=== PATIENT | male | born 1935 | race Caucasian/White ===

== ENCOUNTER 2017-12-31 23:58 | Emergency (ER) | payer MEDICARE, BC ==
[2018-01-01 01:43] LABS: #Basophils 0.1 thou/uL (0.0-0.2); #Eosinphils 0.1 thou/uL (0.0-0.7); #Lymphocytes 1.7 thou/uL (1.20-3.40); #Monocytes 0.6 thou/uL (0.11-0.59); %Eosinophils 1.7 % (0.0-10.0); %Lymphocytes 19.6 % (21.0-51.0); %Monocytes 6.9 % (0.0-10.0); %Neutrophils 70.7 % (42.0-75.0); Hemoglobin 14.1 g/dL (14.0-18.0); Mean Corpuscular HGB CONC 34.8 g/dL (32.0-36.0); Mean Corpuscular Hemoglobin 33.5 pg (27.0-31.0); Mean Corpuscular Volume 96.2 fl (80.0-94.0); Platelet Count 195 thou/uL (130-400); RBC Distribution Width 11.5 % (11.5-14.5); Red Blood Cell (RBC) Count 4.22 mill/uL (4.70-6.10); White Blood Cell (WBC) Count 8.4 thou/uL (4.8-10.8)
[2018-01-01 02:05] LABS: ALT (SGPT) 16 U/L (8-55); AST (SGOT) 19 U/L (5-34); Albumin 3.9 g/dL (3.4-4.8); Alkaline Phosphatase 98 U/L (40-150); Anion Gap 13 mmol/L (10-20); BUN (Urea Nitrogen) 22 mg/dL (8.4-25.7); Bilirubin, Total 0.7 mg/dL (0.2-1.2); CK (CPK) 80 U/L (30-200); Calc. Creatinine Clearance 0 mL/min (70-130); Calcium 9.5 mg/dL (7.8-10.44); Carbon Dioxide 25 mmol/L (23-31); Chloride 105 mmol/L (98-107); Estimated GFR-MDRD 65; Globulin 3.1 g/dL (2.4-3.5); Glucose 135 mg/dL (83-110); Potassium 4.2 mmol/L (3.5-5.1); Sodium 139 mmol/L (136-145)
[2018-01-01 02:08] LABS: CKMB 2.3 ng/mL (0-6.6); Troponin I Less than 0.010 ng/mL (< 0.028)
--- NOTE | 2018-01-01 07:39 | RAD ---
SINGLE VIEW OF THE CHEST: COMPARISON: 04/28/16. HISTORY: Chest pain. FINDINGS: A single view of the chest shows an enlarged but stable cardiomediastinal silhouette. The patient is status post sternotomy. There is elevation of the left hemidiaphragm. Atelectasis is seen in the l eft lung base. There is no evidence of consolidation, mass, or pleural effusion. IMPRESSION: 1. No evidence of acute cardiopulmonary disease. 2. Cardiomegaly. POS: [facility]
== END 2018-01-01 02:39 | disposition home or self-care (01) ==
LOC: ERS 23:58
DX: I10 Essential (primary) hypertension (principal); I25.10 Atherosclerotic heart disease of native coronary artery without angina pectoris; Z87.891 Personal history of nicotine dependence; Z79.899 Other long term (current) drug therapy; Z79.02 Long term (current) use of antithrombotics/antiplatelets
CPT/HCPCS: 36415; 71045; 80053; 82550; 82553; 83880; 84484; 85025; 93005

== ENCOUNTER 2018-09-08 22:34 | Observation (INO) | payer MEDICARE, BC ==
[2018-09-08 23:26] LABS: #Basophils 0.1 thou/uL (0.0-0.2); #Eosinphils 0.3 thou/uL (0.0-0.7); #Lymphocytes 1.8 thou/uL (1.20-3.40); #Monocytes 0.6 thou/uL (0.11-0.59); #Neutrophils 5.6 thou/uL (1.40-6.50); %Basophils 0.7 % (0.0-1.0); %Lymphocytes 21.3 % (21.0-51.0); %Monocytes 7.2 % (0.0-10.0); %Neutrophils 67.8 % (42.0-75.0); Hemoglobin 14.4 g/dL (14.0-18.0); Mean Corpuscular HGB CONC 33.3 g/dL (32.0-36.0); Mean Corpuscular Hemoglobin 31.9 pg (27.0-31.0); Mean Corpuscular Volume 95.8 fL (78.0-98.0); Mean Platelet Volume 7.1 fL (7.4-10.4); Platelet Count 228 thou/uL (130-400); RBC Distribution Width 11.8 % (11.5-14.5); Red Blood Cell (RBC) Count 4.51 mill/uL (4.70-6.10); White Blood Cell (WBC) Count 8.3 thou/uL (4.8-10.8)
[2018-09-08 23:51] LABS: ALT (SGPT) 16 U/L (8-55); AST (SGOT) 18 U/L (5-34); Albumin 4.1 g/dL (3.4-4.8); Alkaline Phosphatase 102 U/L (40-150); Anion Gap 10 mmol/L (10-20); BUN (Urea Nitrogen) 25 mg/dL (8.4-25.7); Calc. Creatinine Clearance 0 mL/min (70-130); Calcium 9.7 mg/dL (7.8-10.44); Carbon Dioxide 28 mmol/L (23-31); Chloride 103 mmol/L (98-107); Estimated GFR-MDRD 41; Globulin 3.6 g/dL (2.4-3.5); Glucose 157 mg/dL (83-110); Potassium 4.2 mmol/L (3.5-5.1); Protein, Total 7.7 g/dL (5.8-8.1); Sodium 137 mmol/L (136-145)
[2018-09-08 23:52] LABS: CKMB 2.2 ng/mL (0-6.6); Troponin I Less than 0.010 ng/mL (< 0.028)
[2018-09-09 02:52] LABS: Troponin I Less than 0.010 ng/mL (< 0.028)
[2018-09-09 04:26] VITALS: BMI 29.5
[2018-09-09 05:54] LABS: Troponin I Less than 0.010 ng/mL (< 0.028)
[2018-09-09] MEDS ORDERED: Temazepam 15 MG CAP PO PRN (07:48)
[2018-09-09] MEDS ORDERED: ALPRAZolam 0.25 MG TAB PO SCH (08:00)
[2018-09-09] MEDS ORDERED: Nitroglycerin 0.4 MG TAB (25 Tab Bottle) SL SCH (08:00)
[2018-09-09] MEDS ORDERED: Non-Formulary Item 1 EACH (Esomeprazole Magnesium [Nexium] 40 MG) PO SCH (08:00)
--- NOTE | 2018-09-09 08:40 | RAD ---
CHEST 1 VIEW: HISTORY: Chest pain. Elevated blood pressure. COMPARISON: Radiograph 01/01/2018. FINDINGS: Chronic elevation of the hemidiaphragm. Compressive atelectasis of both lung bases. There are subtl e increased linear-type interstitial opacities. No acute osseous abnormality. Multiple midline sternotomy wires. IMPRESSION: Similar to examination of the chest. No evidence for overt pneumonia. Chronic interstitial markings versus similar edema. POS: [facility]
--- NOTE | 2018-09-09 08:43 | HP ---
ADMITTING PHYSICIAN: Talon Delatorre M.D. HISTORY OF PRESENT ILLNESS: The patient is an 83-year-old male status post coronary bypass graft man y years ago with a known history of atherosclerotic coronary disease. He brought himself to the [facility] room, stated he had elevated blood pressure reading at home of a systolic of 202. He recently had his valsartan changed out to probably losartan. He states that since he has had that blood press ure medicine change, his blood pressure is now slightly elevated at times. H, he reports no chest pa in, no shortness of breath. He does have some left flank pain at times, which he describes more like gas-like pain. He has not noted any nausea, vomiting, diarrhea, no fever. Upon questioning at this time, he states he is feeling fairly normal. He reported his chest x-ray showed fluid on his lungs. This is noted in the ER notes, but otherwise no other medical complaints. No cough. At this time, he is resting comfortably. As noted, he has a history of coronary bypass surgery approximately 10-1 5 years ago. He did have one stent placed in 2016 as well. PAST MEDICAL HISTORY: Positive for hypertension, coronary artery disease, insomnia, osteoarthritis. SURGICAL HISTORY: As noted, positive for the coronary bypass graft as well as stent. SOCIAL AND PERSONAL HISTORY: He is . He does not smoke. He still works as a barnard. He sommers s not drink alcohol at this time. CURRENT MEDICATIONS: Amlodipine 2.5 mg daily, carvedilol 6.25 mg b.i.d., Plavix 75 mg daily, Indocin 25 mg daily as needed for arthritis pain, atenolol 10 mg daily, Xalatan eye drops, aspirin 325 daily , temazepam 50 mg at bedtime, Nexium 20 mg daily. He still lists valsartan 160 mg daily, as well as Benicar 5 mg daily. REVIEW OF SYSTEMS: GASTROINTESTINAL: Positive for some gas pain to the left upper quadrant. GENITOURINARY: Negative. CARDIOVASCULAR: Negative. PULMONARY: Otherwise negative. PHYSICAL EXAMINATION: VITAL SIGNS: Temperature 97.6, pulse 61, respirations 16, O2 sat 98%, blood pressure currently 140/8 3. GENERAL: He is alert, active, in no acute distress. HEENT: Otherwise, unremarkable. NECK: Supple, full range of motion, no masses, no bruits. LUNGS: Clear. HEART: Reveals a regular rate and rhythm without murmurs, gallops or rubs. ABDOMEN: Soft, nontender, bowel sounds are present and active. There is no hepatosplenomegaly noted . EXTREMITIES: No clubbing, edema or cyanosis. LABORATORY: Sodium is 137, potassium 4.2, chloride 103, CO2 28, BUN 25, creatinine 1.6. Troponins x 3 are normal. His BNP is 56.8. White blood count 8.3, hemoglobin 14.4, hematocrit 43.2 with normal differential. Chest x-ray by ER report shows pleural effusions. Otherwise, no other findings were noted. EKG reveals sinus rhythm without acute changes. IMPRESSION: his is an 83-year-old male who had elevated hypertensive episode at home. Appears to be fairly asymptomatic with previous history of atherosclerotic coronary artery disease. PLAN: The patient's blood pressure is currently normal at this time. We will go ahead and order a s tress test as well as Cardiology consult. He is to maintain his home medications for the moment.
[2018-09-09] MEDS ORDERED: Non-Formulary Item 1 EACH (Amlodipine Besylate [Norvasc] 2.5 MG) PO SCH (09:00)
[2018-09-09] MEDS ORDERED: Timolol 0.25% Ophth Soln 5 ml Bottle EA EYE SCH (09:00)
[2018-09-09] MEDS ORDERED: Amlodipine 5 MG TAB PO SCH ×2 (09:00→14:30)
[2018-09-09] MEDS ORDERED: Carvedilol 6.25 MG TAB PO SCH (09:00)
[2018-09-09] MEDS ORDERED: Aspirin 325 MG TAB PO SCH ×2 (09:00)
[2018-09-09] MEDS ORDERED: Bupropion 100 MG SR TAB PO SCH (09:00)
[2018-09-09] MEDS ORDERED: Clopidogrel Bisulfate 75 MG TAB PO SCH (09:00)
[2018-09-09] MEDS ORDERED: SULINDAC 150 MG PO SCH ×2 (09:00)
[2018-09-09] MEDS ORDERED: Latanoprost 0.005% Ophth Soln 2.5 ml Bottle EA EYE SCH (09:00)
[2018-09-09] MEDS ORDERED: ADENOSINE 60 MG/20 ML VIAL ONE (13:08)
[2018-09-09] MEDS ORDERED: Olmesartan 5 MG TAB PO SCH (13:48)
[2018-09-09] MEDS ORDERED: cloNIDine 0.1 MG TAB PO PRN (13:50)
--- NOTE | 2018-09-09 14:15 | PRG ---
DATE OF SERVICE: 09/09/2018 SUBJECTIVE: Mr. Santos is an 83-year-old gentleman who went to the emergency room yesterday with blood pressure systolic over 200. He denied any chest pain or pressure with that. The patient was transferred here for further evaluation. He feels fine. He has not had any chest pain or pressure. OBJECTIVE: VITAL SIGNS: Blood pressure earlier was 138/76, it was 190/91 today, but I do not think he got his blood pressure medicines due to stress testing. LUNGS: Clear. CARDIAC: Normal S1, normal S2. ABDOMEN: Soft, nontender. EXTREMITIES: No edema. Stress testing was done showed no ischemia. ASSESSMENT: 1. Hypertension, labile. 2. Coronary artery disease with no evidence of any ischemia on stress testing by report. 3. Apparently, he had been taken off of his diuretic due to renal insufficiency. PLAN: 1. Increase amlodipine to 10 mg a day. 2. Continue Benicar 40 mg a day. 3. Clonidine if needed. 4. Continue carvedilol. 5. Continue other medicines unchanged. Clonidine 0.1 mg every hour if the systolic blood pressures over 180 up to 4 doses per day. MTDD
--- NOTE | 2018-09-09 14:29 | NM ---
RADIONUCLIDE STRESS REST MYOCARDIAL PERFUSION SCAN WITH CT ATTENUATION CORRECTION AND SPECT IMAGING LEFT VENTRICULAR WALL MOTION EVALUATION AND EJECTION FRACTION: HISTORY: FINDINGS: Adenosine protocol. Homogeneous uptake of radiotracer throughout the left ventricular myocardium. N o focal perfusion defect or reversibility. QGS analysis of gated SPECT images shows no focal wall mo tion abnormalities. Ejection fraction calculated at 65%. IMPRESSION: Normal myocardial perfusion scan. Normal left ventricular ejection fraction. POS: [facility]
[2018-09-09 15:41] VITALS: BP 156/85; TEMP 97.5
[2018-09-09] MEDS ORDERED: Pravastatin Sodium 20 MG TAB PO SCH (21:00)
[2018-09-09] MEDS ORDERED: Simvastatin 5 MG TAB PO SCH (21:00)
[2018-09-10] MEDS ORDERED: Amlodipine 10 MG TAB PO SCH (09:00)
--- NOTE | 2018-09-14 11:36 | EKG ---
Test Reason : Blood Pressure : / mmHG Vent. Rate : 065 BPM Atrial Rate : 065 BPM P-R Int : 126 ms QRS Dur : 080 ms QT Int : 430 ms P-R-T Axes : 010 011 031 degrees QTc Int : 447 ms Normal sinus rhythm Normal ECG Confirmed by SG ROY DO ([id number]), state editor TUCKER BLOOM ([id number]) on 09/14/2018 11:35:38 AM Referred By: MANOJ ROY Confirmed By:SG ROY DO
== END 2018-09-09 16:07 | disposition home or self-care (01) ==
LOC: ERS 22:34 → 2SW 09-09 03:30
PROVIDERS: ADMIT Family Medicine; ATTEND Family Medicine
DX: I11.0 Hypertensive heart disease with heart failure (principal); I50.9 Heart failure, unspecified; I25.10 Atherosclerotic heart disease of native coronary artery without angina pectoris; M19.90 Unspecified osteoarthritis, unspecified site; Z79.02 Long term (current) use of antithrombotics/antiplatelets; Z79.899 Other long term (current) drug therapy; Z79.82 Long term (current) use of aspirin
CPT/HCPCS: 71045; 78452; 80053; 82553; 83880; 84484 ×3; 85025; 93005; 93017; 94760; 99285; A9500; G0378 ×2; 36415; J0153

== ENCOUNTER 2019-08-19 13:50 | Outpatient (CLI) | payer MEDICARE, BC ==
[2019-08-19 14:54] LABS: #Basophils 0.1 thou/uL (0.0-0.2); #Eosinphils 0.2 thou/uL (0.0-0.7); #Lymphocytes 1.8 thou/uL (1.20-3.40); #Monocytes 0.8 thou/uL (0.11-0.59); #Neutrophils 7.3 thou/uL (1.40-6.50); %Basophils 0.7 % (0.0-1.0); %Eosinophils 2.1 % (0.0-10.0); %Lymphocytes 17.5 % (21.0-51.0); %Monocytes 8.2 % (0.0-10.0); %Neutrophils 71.5 % (42.0-75.0); Hemoglobin 13.7 g/dL (14.0-18.0); Mean Corpuscular HGB CONC 34.2 g/dL (32.0-36.0); Mean Corpuscular Hemoglobin 32.7 pg (27.0-31.0); Mean Corpuscular Volume 95.6 fL (78.0-98.0); Mean Platelet Volume 7.6 fL (7.4-10.4); Platelet Count 205 thou/uL (130-400); RBC Distribution Width 11.2 % (11.5-14.5); Red Blood Cell (RBC) Count 4.19 mill/uL (4.70-6.10); White Blood Cell (WBC) Count 10.2 thou/uL (4.8-10.8)
[2019-08-19 15:15] LABS: ALT (SGPT) 13 U/L (8-55); AST (SGOT) 14 U/L (5-34); Albumin 3.9 g/dL (3.4-4.8); Alkaline Phosphatase 109 U/L (40-110); Anion Gap 15 mmol/L (10-20); BUN (Urea Nitrogen) 26 mg/dL (8.4-25.7); Bilirubin, Total 0.9 mg/dL (0.2-1.2); Calc. Creatinine Clearance 0 mL/min (70-130); Calcium 9.2 mg/dL (7.8-10.44); Carbon Dioxide 24 mmol/L (23-31); Chloride 102 mmol/L (98-107); Estimated GFR-MDRD 31; Globulin 3.2 g/dL (2.4-3.5); Glucose 168 mg/dL (83-110); Potassium 4.2 mmol/L (3.5-5.1); Protein, Total 7.1 g/dL (5.8-8.1); Sodium 137 mmol/L (136-145)
== END 2019-08-19 13:51 | disposition home or self-care (01) ==
LOC: LABBT 13:50
PROVIDERS: ATTEND Internal Medicine Cardiovascular Disease
DX: Z01.812 Encounter for preprocedural laboratory examination (principal); I20.9 Angina pectoris, unspecified
CPT/HCPCS: 80053; 85025

== ENCOUNTER 2019-08-25 05:37 | Day surgery (SDC) | payer MEDICARE, BC ==
[2019-08-19 14:09] VITALS: BMI 29.1
[2019-08-25] MEDS ORDERED: Lidocaine 1% (PF) 30 ML VIAL ONE (06:36)
[2019-08-25 07:17] LABS: Anion Gap 13 mmol/L (10-20); BUN (Urea Nitrogen) 19 mg/dL (8.4-25.7); Calc. Creatinine Clearance 51 mL/min (70-130); Calcium 9.5 mg/dL (7.8-10.44); Carbon Dioxide 25 mmol/L (23-31); Chloride 106 mmol/L (98-107); Estimated GFR-MDRD 47; Glucose 116 mg/dL (83-110); Potassium 4.1 mmol/L (3.5-5.1); Sodium 140 mmol/L (136-145)
[2019-08-25] MEDS ORDERED: Fentanyl 100 MCG/2 ML VIAL ONE (07:51)
[2019-08-25] MEDS ORDERED: Atropine Sulfate 1 mg/10 ml Syringe ONE (08:18)
[2019-08-25] MEDS ORDERED: Hydrocortisone Sod Succ/PF 100 mg/2 ml Vial ONE (08:39)
[2019-08-25] MEDS ORDERED: Iopamidol 370 76% 100 ML VIAL ONE (14:02)
--- NOTE | 2019-08-25 14:38 | DIS ---
DATE OF ADMISSION: 08/25/2019 DATE OF DISCHARGE: 08/25/2019 Mr. Dang underwent cardiac catheterization today. He should be treated medically. His ejection fraction is 55%. He does have diastolic heart failure, also bradycardic. PLAN: 1. The carvedilol is reduced to 3.125 mg twice a day. 2. Benicar was stopped for now. 3. Torsemide 10 mg a day. 4. Potassium 20 mEq a day. 5. Amlodipine 10 mg a day. 6. Aspirin and Plavix will be continued. His creatinine went from 2.04 down to 1.4, going off the olmesartan for couple of days. Long-term prognosis guarded. He was bradycardic here. The carvedilol dose was reduced. He has diastolic heart failure, not systolic heart failure. The patient has patent graft to the LAD and diagonal. The patent stent in the right with distal disease, patent circumflex with ostial lesion calcified at the origin, not amenable to percutaneous therapy. Prognosis, long-term, guarded. Job ID: [id number]
== END 2019-08-25 13:48 | disposition home or self-care (01) ==
LOC: CCL 05:37 → EDSTATUS 10:35 → CCL 13:48
PROVIDERS: ATTEND Internal Medicine Cardiovascular Disease
PROC: 4A023N7 Measurement of Cardiac Sampling and Pressure, Left Heart, Percutaneous Approach (ICD-10-PCS; principal; 2019-08-25)
PROC: B2111ZZ Fluoroscopy of Multiple Coronary Arteries using Low Osmolar Contrast (ICD-10-PCS; 2019-08-25)
DX: I25.718 Atherosclerosis of autologous vein coronary artery bypass graft(s) with other forms of angina pectoris (principal); I25.82 Chronic total occlusion of coronary artery; I25.84 Coronary atherosclerosis due to calcified coronary lesion; I10 Essential (primary) hypertension; E78.00 Pure hypercholesterolemia, unspecified; I49.3 Ventricular premature depolarization; Z95.1 Presence of aortocoronary bypass graft
CPT/HCPCS: 76942; 80048; 93459; C1769; J0461; J1644; J1720; J2001; J3010; Q9967

== ENCOUNTER 2019-08-31 09:08 | Emergency (ER) | payer MEDICARE, BC ==
[2019-08-31 10:08] LABS: #Eosinphils 0.2 thou/uL (0.0-0.7); #Lymphocytes 1.7 thou/uL (1.20-3.40); #Monocytes 0.8 thou/uL (0.11-0.59); #Neutrophils 7.1 thou/uL (1.40-6.50); %Basophils 0.4 % (0.0-1.0); %Eosinophils 2.2 % (0.0-10.0); %Lymphocytes 17.3 % (21.0-51.0); %Monocytes 8.4 % (0.0-10.0); %Neutrophils 71.7 % (42.0-75.0); Hemoglobin 14.1 g/dL (14.0-18.0); Mean Corpuscular HGB CONC 34.2 g/dL (32.0-36.0); Mean Corpuscular Volume 93.6 fL (78.0-98.0); Mean Platelet Volume 7.3 fL (7.4-10.4); Platelet Count 222 thou/uL (130-400); RBC Distribution Width 11.3 % (11.5-14.5); Red Blood Cell (RBC) Count 4.39 mill/uL (4.70-6.10); White Blood Cell (WBC) Count 9.9 thou/uL (4.8-10.8)
--- NOTE | 2019-08-31 10:30 | RAD ---
PORTABLE CHEST ONE VIEW: 08/31/2019 9:38 a.m. HISTORY: Shortness of breath. COMPARISON: 02/12/2019 FINDINGS: There is continued elevation of the left hemidiaphragm. There is mild infiltrate versus atelectatic c hange at the left lung base. Changes of median sternotomy are again seen. The right lung is clear. POS: [facility]
[2019-08-31 10:34] LABS: ALT (SGPT) 13 U/L (8-55); AST (SGOT) 15 U/L (5-34); Alkaline Phosphatase 117 U/L (40-110); Anion Gap 13 mmol/L (10-20); BUN (Urea Nitrogen) 19 mg/dL (8.4-25.7); Calc. Creatinine Clearance 0 mL/min (70-130); Calcium 9.1 mg/dL (7.8-10.44); Carbon Dioxide 25 mmol/L (23-31); Chloride 103 mmol/L (98-107); Estimated GFR-MDRD 49; Glucose 116 mg/dL (83-110); Potassium 4.1 mmol/L (3.5-5.1); Sodium 137 mmol/L (136-145)
== END 2019-08-31 11:27 | disposition home or self-care (01) ==
LOC: ERS 09:08
DX: R06.00 Dyspnea, unspecified (principal); M54.5 Low back pain; I10 Essential (primary) hypertension; Z87.891 Personal history of nicotine dependence; Z79.899 Other long term (current) drug therapy
CPT/HCPCS: 36415; 71045; 80053; 83690; 83880; 84484; 85025

== ENCOUNTER 2020-12-19 13:27 | Inpatient (IN) | payer MEDICARE, BC ==
--- NOTE | 2020-12-19 14:17 | RAD ---
RADIOGRAPH CHEST 1 VIEW: DATE: 12/19/2020 TIME: 2:09 PM HISTORY: 88-year-old male with altered mental status. Concern for aspiration. COMPARISON: 08/31/2019 FINDINGS: Elevated left hemidiaphragm. Mild nodular interstitial densities at the lateral aspect of left mid an d lower lung zones. Hypoinflated lungs. Sternotomy wires. Similar mild nodular interstitial densities at right lateral lower lung zone. No new consolidation or pneumothorax. No interval change overall. IMPRESSION: 1) chronically elevated left hemidiaphragm. 2) chronic bilateral nodular interstitial pulmonary densities. 3) no acute findings
[2020-12-19 14:23] LABS: Bacteria/HPF None Seen HPF (None Seen); Bilirubin Negative (Negative); Blood, Urine 1+ (Negative); Clarity Clear (Clear); Glucose, Urine (Dipstick) Normal (Negative); Ketone, Urine Negative (Negative); Leukocyte Negative Leu/uL (Negative); Nitrite Negative (Negative); Protein, Urine (Dipstick) 10 mg/dL (Neg-Trace); RBC/HPF 21-50 HPF (0-3); Specific Gravity, Urine 1.017 (1.002-1.036); Squamous Epithelial None Seen HPF (0-3); Urobilinogen Normal mg/dL (Less than 2)
[2020-12-19 14:31] LABS: Medtox Reader # READER 4
[2020-12-19 14:32] LABS: Amphetamine Not Detected (NotDetected); Barbiturates Screen Not Detected (NotDetected); Benzodiazepine Screen Detected (NotDetected); Cocaine Metabolite Screen Not Detected (NotDetected); Medtox Control Line Valid? VALID (VALID); Methadone Not Detected (NotDetected); Methamphetamine Not Detected (NotDetected); Opiate Screen Not Detected (NotDetected); Oxycodone Screen Not Detected (NotDetected); Phencyclidine (PCP) Not Detected (NotDetected); THC/Cannabinoid Screen Not Detected (NotDetected); Tricyclic Screen Not Detected (NotDetected)
[2020-12-19 14:54] LABS: #Basophils 0.1 thou/uL (0.0-0.2); #Eosinphils 0.2 thou/uL (0.0-0.7); #Monocytes 0.8 thou/uL (0.11-0.59); #Neutrophils 6.3 thou/uL (1.40-6.50); %Eosinophils 1.8 % (0.0-10.0); %Lymphocytes 21.3 % (21.0-51.0); %Monocytes 8.8 % (0.0-10.0); %Neutrophils 67.1 % (42.0-75.0); Hemoglobin 14.4 g/dL (14.0-18.0); Mean Corpuscular HGB CONC 33.6 g/dL (32.0-36.0); Mean Corpuscular Hemoglobin 31.4 pg (27.0-31.0); Mean Corpuscular Volume 93.6 fL (78.0-98.0); Mean Platelet Volume 7.2 fL (7.4-10.4); Platelet Count 245 thou/uL (130-400); RBC Distribution Width 11.9 % (11.5-14.5); Red Blood Cell (RBC) Count 4.57 mill/uL (4.70-6.10); White Blood Cell (WBC) Count 9.4 thou/uL (4.8-10.8)
[2020-12-19 15:13] LABS: ALT (SGPT) 19 U/L (8-55); AST (SGOT) 19 U/L (5-34); Acetaminophen Less than 6.0 mcg/mL (10.0-30.0); Alcohol Less than 10 mg/dL (Less than 10); Alkaline Phosphatase 119 U/L (40-110); Anion Gap 16 mmol/L (10-20); BUN (Urea Nitrogen) 21 mg/dL (8.4-25.7); Bilirubin, Total 1.2 mg/dL (0.2-1.2); Calc. Creatinine Clearance 0 mL/min (70-130); Calcium 9.3 mg/dL (7.8-10.44); Carbon Dioxide 23 mmol/L (23-31); Chloride 103 mmol/L (98-107); Globulin 3.6 g/dL (2.4-3.5); Glucose 140 mg/dL (83-110); Potassium 4.1 mmol/L (3.5-5.1); Protein, Total 7.6 g/dL (5.8-8.1); Salicylate Less than 8.0 mg/dL (15.0-30.0); Sodium 138 mmol/L (136-145)
--- NOTE | 2020-12-19 15:19 | CT ---
CT BRAIN NONCONTRAST: DATE: 12/19/2020 HISTORY: 85-year-old male with altered mental status FINDINGS: There is no evidence of acute intra-axial or extra-axial hemorrhage. There is no midline shift or any other mass effect. There is no extra-axial fluid collection. There is no evidence of obstructive hydrocephalus. Calvarium is intact. There is diffuse brain parenchymal volume loss. There are low att enuation areas in the white matter. These are nonspecific, but in a patient of this age, they are probably chronic ischemic white matter changes due to microvascular atherosclerosis. IMPRESSION: 1) No acute intracranial findings. 2) involutional changes and chronic ischemic white matter changes.
[2020-12-19] MEDS ORDERED: Ziprasidone 20 MG VIAL ONE ×2 (17:01)
[2020-12-19] MEDS ORDERED: Sterile Water 10 ML ONE (17:02)
[2020-12-19] MEDS ORDERED: Senokot S 8.6-50 MG TAB PO PRN (18:28)
[2020-12-19] MEDS ORDERED: Acetaminophen 325 MG TAB PO PRN (18:28)
[2020-12-19] MEDS: Famotidine 20 MG TAB PO SCH (21:15)
[2020-12-19] MEDS ORDERED: Sodium Chloride 0.9% 1,000 ML IV SCH (21:45)
--- NOTE | 2020-12-19 22:33 | HP ---
PRIMARY CARE PHYSICIAN: Dr. Talon Delatorre. CHIEF COMPLAINT: Altered mental status. HISTORY OF PRESENT ILLNESS: Mr. Santos is an 85-year-old man who was brought to the emergency room today via EMS after what his says is 2 to 3 weeks of intermittent agitation. He has some aggressive behaviors without any previous history of any dementia. called the EMS today because he was getting significantly worse over the last several days. He has been unable to sleep, has been aggressive with her and very confused. The patient was unable to give any history, especially over the last several days. Mr. Santos has a past medical history of coronary artery disease, hypertension, and high cholesterol. It appears the last hospitalization at this hospital was in 2017. He had a cardiac stress test in August 2019. At that time, he had an LVEF of 55%. He had 100% occluded LAD with a patent WING to LAD and radiograph with two diagonal, 90% proximal circumflex. He has a patent stents in the RCA. He does have four grafts. Dr. Walker at that time recommended medical therapy. He did point out that he had some diastolic heart failure at that time as well. Workup in the emergency room was largely unremarkable. His creatinine was 1.43, which for him above baseline for the information we have over the last several years. Glucose is 140, alkaline phosphatase was 119, which is also at baseline for the patient. CBC with a white blood cell count of 9.4, hemoglobin of 14.4, hematocrit 42.8, and platelet count 245. Urine demonstrated a little bit of blood, white blood cells, no bacteria was seen. They did a urine drug screen, which was positive for benzodiazepine. He does take this p.r.n. at home, but no other findings. CT of the brain was also performed and was negative for any acute findings. The ER workup was unable to find a cause for the patient's altered mental status, then he was admitted for further management. REVIEW OF SYSTEMS: Unable to obtain due to mental status changes. PAST MEDICAL HISTORY: Please see HPI. SURGICAL HISTORY: He has had an appendectomy, coronary artery bypass graft four vessel in 2006, and cardiac stent placed in 2015. PSYCHIATRIC HISTORY: None. SOCIAL HISTORY: Denies any alcohol or drug use. He did smoke cigarettes at one time and he lives at home with his family. ALLERGIES: NONE. CURRENT MEDICATIONS: Per the ER system, these will need to be reconciled: 1. Amlodipine 10 mg p.o. once a day. 2. Coreg 6.25 p.o. b.i.d. 3. Flomax 0.4 mg p.o. once a day. 4. Restoril p.o. once a day at bedtime. 5. Colchicine 0.6 mg p.o. once a day. 6. Torsemide 10 mg p.o. once a day. 7. Aspirin 81 mg p.o. once a day. 8. Wellbutrin 100 mg p.o. once a day. 9. Timolol one drop both eyes b.i.d. 10. Plavix 75 mg p.o. once a day. 11. Xanax 0.25 mg p.r.n. 12. Potassium chloride 20 mEq once a day. PHYSICAL EXAMINATION: VITAL SIGNS: Blood pressure 135/84, MAP is 101, pulse is 72, respiratory rate is 16, and pO2 sats are 97% on room air. CONSTITUTIONAL: The patient is not agitated during the exam. He was speaking to one of the nurses in the room. With us, he was talking about some of his past history to her. He was stating he was uncomfortable and was looking for to getting out of that structure. HEENT: Head is atraumatic and normocephalic. Pupils are equally round and reactive to light. ENT, mouth exam is normal. Mucous membranes are moist. NECK: Normal range of motion. Trachea is midline. RESPIRATORY/CHEST: No respiratory distress. Bowel sounds are clear. CARDIOVASCULAR: Regular rate and rhythm. Heart sounds are normal. ABDOMEN: Nontender. Bowel sounds are heard. EXTREMITIES: Upper extremity, inspection is normal. There is no edema. Radial pulses are normal. Lower extremity, normal range of motion, no edema. He follows commands, but he is confused with current events. He has no facial asymmetry. SKIN: Warm and dry. Normal in color. IMAGING STUDIES: EKG in the emergency room shows normal sinus rhythm, beats per minute 82, ST-T waves with no changes. ASSESSMENT: 1. Altered mental status. Encephalopathy without any clear source. MRI of the brain, echocardiogram, carotid Dopplers have been ordered. Neurology consult has been added. PT, OT, Speech have been ordered. We are going to hold his Xanax and Restoril for now. May consider tapering. 2. Gentle hydration, normal saline at 75 mL per hour x1 bag. 3. History of coronary artery disease with a stent placement. We will continue his home medications. 4. History of diastolic dysfunction. We will continue the Lasix or torsemide. 5. PUD and DVT prevention started. 6. Hospital course dependent on clinical findings. Job ID: [id number]
--- NOTE | 2020-12-19 23:00 | ULT ---
EXAM: Carotid ultrasound HISTORY: Altered mental status COMPARISON: None TECHNIQUE: Multiplanar grayscale and color Doppler images were obtained in a carotid ultrasound. Spec tral analysis of the Doppler waveforms were performed. FINDINGS: A small amount of plaque is seen surrounding both carotid bifurcations. The Doppler waveforms are normal in the visualized vessels. Peak systolic velocity in the right internal carotid artery 68 cm/s. Peak systolic velocity in the right common carotid artery 72 cm/s. The right ICA/CCA ratio is 1.0. Peak systolic velocity in the left internal carotid artery 87 cm/s. Peak systolic velocity in the left common carotid artery 79 cm/s. The left ICA/CCA ratio is 1.1. Both vertebral arteries demonstrate antegrade flow without focal stenosis IMPRESSION: No evidence of hemodynamically significant stenosis.
[2020-12-20 01:40] LABS: SARS-CoV-2 PCR by NAA Not Detected (NotDetected)
[2020-12-20 04:51] LABS: #Basophils 0.1 thou/uL (0.0-0.2); #Eosinphils 0.2 thou/uL (0.0-0.7); #Lymphocytes 1.7 thou/uL (1.20-3.40); #Monocytes 0.8 thou/uL (0.11-0.59); #Neutrophils 5.8 thou/uL (1.40-6.50); %Eosinophils 2.5 % (0.0-10.0); %Lymphocytes 19.3 % (21.0-51.0); %Monocytes 9.7 % (0.0-10.0); %Neutrophils 67.5 % (42.0-75.0); Hemoglobin 14.1 g/dL (14.0-18.0); Mean Corpuscular HGB CONC 34.2 g/dL (32.0-36.0); Mean Corpuscular Hemoglobin 32.6 pg (27.0-31.0); Mean Corpuscular Volume 95.5 fL (78.0-98.0); Mean Platelet Volume 7.6 fL (7.4-10.4); Platelet Count 235 thou/uL (130-400); Red Blood Cell (RBC) Count 4.33 mill/uL (4.70-6.10); White Blood Cell (WBC) Count 8.5 thou/uL (4.8-10.8)
[2020-12-20 05:09] LABS: Phosphorus 2.4 mg/dL (2.3-4.7)
[2020-12-20 05:10] LABS: ALT (SGPT) 19 U/L (8-55); AST (SGOT) 21 U/L (5-34); Albumin 3.8 g/dL (3.4-4.8); Alkaline Phosphatase 112 U/L (40-110); Anion Gap 14 mmol/L (10-20); BUN (Urea Nitrogen) 18 mg/dL (8.4-25.7); Calc. Creatinine Clearance 48 mL/min (70-130); Calcium 9.2 mg/dL (7.8-10.44); Carbon Dioxide 25 mmol/L (23-31); Chloride 105 mmol/L (98-107); Globulin 3.5 g/dL (2.4-3.5); Glucose 203 mg/dL (83-110); Potassium 3.6 mmol/L (3.5-5.1); Protein, Total 7.3 g/dL (5.8-8.1); Sodium 140 mmol/L (136-145)
[2020-12-20] MEDS ORDERED: Lorazepam 2 MG/ML VIAL SLOW IVP SCH (11:00)
[2020-12-20] MEDS: Carvedilol 6.25 MG TAB PO SCH ×2 (11:42→20:55)
[2020-12-20] MEDS: Bupropion 100 MG SR TAB PO SCH (11:42)
[2020-12-20] MEDS: Potassium Chloride 10 MEQ TAB PO SCH ×2 (11:42→18:25)
[2020-12-20] MEDS: Clopidogrel Bisulfate 75 MG TAB PO SCH (11:42)
[2020-12-20] MEDS: Torsemide 20 MG TAB PO SCH (11:43)
[2020-12-20] MEDS: Aspirin 81 mg Enteric Coated Tablet PO SCH (11:43)
[2020-12-20] MEDS: Famotidine 20 MG TAB PO SCH (11:43)
[2020-12-20] MEDS: Amlodipine 10 MG TAB PO SCH (11:43)
[2020-12-20] MEDS: Timolol 0.25% Ophth Soln 5 ml Bottle EA EYE SCH (11:44)
[2020-12-20] MEDS: Enoxaparin Sodium 40 MG/0.4 ML SYRINGE SC SCH (11:45)
--- NOTE | 2020-12-20 12:44 | CON ---
NEUROLOGY CONSULTATION DATE OF CONSULTATION: 12/20/2020 REASON FOR CONSULTATION: Altered mental status. HISTORY OF PRESENT ILLNESS: Mr. Santos is an 85-year-old male with medical history significant for coronary artery disease, presented to the emergency room with altered mental status. The patient has no prior history of dementia, agitation, confusion, or episodes of memory lapses. He does have depression which is controlled with Wellbutrin. Per , he has an intermittent agitation for the last 2 to 3 weeks, but since yesterday, he became extremely agitated and combative and it was difficult to control his anger, so the called EMS and decided to bring him to the emergency room for further evaluation. The patient is extremely agitated at the time of the rounds, so history is obtained from the . Per , they have been for 62 years and he has no change in mental status. Overall these years, this is the first time he has an episode of extreme anger and combativeness with confusion. The denies any focal weakness, focal paresthesias, nausea, vomiting, chest pain, abdominal pain, recent illness or recent exposure with COVID. He did not sleep for the last 2 days. REVIEW OF SYSTEMS: Unable to obtain secondary to patient's mental status. Per , all systems reviewed and were negative except the pertinent positives and negatives mentioned in the HPI. PAST MEDICAL HISTORY: Hypertension, hypercholesterolemia, coronary artery disease. PAST SURGICAL HISTORY: He has appendectomy, coronary artery bypass graft four-vessel in 2006, cardiac stent placed in 2016. PAST PSYCHIATRIC HISTORY: Depression controlled with Wellbutrin. SOCIAL HISTORY: Per , he has no history of alcohol or drug abuse. He did smoke cigarettes previously and lives at home with his family. ALLERGIES: NONE. CURRENT MEDICATIONS: 1. Amlodipine 10 mg once daily. 2. Coreg 6.25 mg twice daily. 3. Flomax 0.4 mg p.o. once daily. 4. Restoril. 5. Colchicine 0.6 mg once a day. 6. Torsemide 10 mg p.o. once daily. 7. Aspirin 81 mg once daily. 8. Wellbutrin 100 mg p.o. once daily. 9. Tylenol 1 drop both eyes b.i.d. 10. Plavix 75 mg once daily. 11. Xanax 0.25 mg p.r.n. 12. Potassium chloride 20 mEq once daily. PHYSICAL EXAMINATION: VITAL SIGNS: Blood pressure 137/90, pulse 80, respiratory rate 18. GENERAL: The patient is extremely agitated and trying to get out of the bed. He is yelling and extremely uncooperative. CVS: Regular rate and rhythm. CHEST: Clear. ABDOMEN: Soft. NECK: Supple. NEUROLOGICAL: Mental status; the patient is extremely agitated and does not want to be examined. He is oriented to person and place, but not to time and year, trying to get out of the bed and starts landing becoming uncomfortable. Motor, muscle tone and bulk are normal. Moving all 4 extremities equally and symmetrically. Sensory; withdraws to nailbed pressure bilaterally. Cranial nerves; pupils 4 mm, round and reactive to light. Face symmetric. Tongue midline. Moves neck in both direction. Hearing seems to be intact. Cerebellar did not cooperate with the testing. Gait deferred due to patient's safety reason. DATA REVIEWED: I reviewed the CT scan which was negative for acute intracranial pathology. ASSESSMENT AND PLAN: Mr. Derrick Santos is an 85-year-old male who presented with altered mental status. He has no prior history of episodes like this before. Neurology consulted to rule out intracranial process. The patient is extremely agitated at this time. EEG to rule out cortical irritability and MRI of the brain to assess for acute intracranial process. 2D echocardiogram to evaluate for left ventricular ejection fraction . Carotid Dopplers did not reveal hemodynamically significant stenosis. Continue telemetry to rule out arrhythmias. Give Ativan 2 mg IV for agitation . The patient has not been able to sleep for last 2 days. Continue aspirin and Plavix for secondary stroke prevention. Neuro checks every 4 hours. Continue home medications. Continue medical management per primary team. Monitor blood pressure and blood glucose. We will continue to follow. Thank you for the consult. Plan discussed in detail with the patient's at bedside and also with the primary attending, Dr. Miguel Deng. Job ID: [id number] [facility]
--- NOTE | 2020-12-20 13:32 | PDOC.EEG ---
Neurology EEG Report - Report Report: This EEG was performed using 24 channel [employer] video EEG machine with 24 disc electrodes. This was an extended 2 hours 6 minutes of inpatient video EEG recording. Digital analysis of the EEG was done for spike and seizure detection which revealed no abnormalities. Background: The posterior background rhythm is not observed. Hyperventilation: Not performed. Photic Stimulation: No significant response. Sleep: No stage change is observed. EEG Diagnosis: Generalized irregular theta delta activity seen during the recording. Absence of posterior background rhythm. Clinical Interpretation: This EEG is consistent with moderate generalized nonspecific cerebral dysfunct ion. No electrographic seizures captured during the recording
--- NOTE | 2020-12-20 17:33 | PDOC.HOSPP ---
- Subjective Encounter Date: 12/20/20 Encounter Time: 17:31 Subjective: Mr. Santos was seen today in follow-up of delirium, vs. dementia. He has been agitated most of the day. He was given Ativan and is now much more calm. - Objective Vital Signs & Weight: Vital Signs (12 hours) Temp Pulse Pulse Pulse Resp BP BP 12/20/20 16:00 98.4 F 74 20 12/20/20 14:50 72 73 131/86 139/76 12/20/20 11:00 98.4 F 88 21 H 12/20/20 07:20 99.3 F 102 H 14 BP Pulse Ox 12/20/20 16:00 128/70 99 12/20/20 14:50 12/20/20 11:00 140/87 99 12/20/20 07:20 128/94 H 98 Weight Admit Weight 194 lb 8 oz Weight 194 lb 8 oz I&O: 12/19/20 12/20/20 12/21/20 06:59 06:59 06:59 Intake Total 240 Balance 240 Result Diagrams: 12/20/20 04:05 12/20/20 04:05 Hospitalist ROS - Medication Medications: Active Medications Generic Name Dose Route Start Last Admin Trade Name Freq PRN Reason Stop Dose Admin Amlodipine Besylate 10 mg 12/20/20 09:00 12/20/20 11:43 Amlodipine 10 Mg Tab PO 10 mg DAILY CURTIS Administration Aspirin 81 mg 12/20/20 09:00 12/20/20 11:43 Aspirin 81 Mg Enteric Coated Tablet PO 81 mg DAILY CURTIS Administration Bupropion HCl 100 mg 12/20/20 09:00 12/20/20 11:42 Bupropion 100 Mg Sr Tab PO 100 mg DAILY CURTIS Administration Carvedilol 6.25 mg 12/20/20 09:00 12/20/20 11:42 Carvedilol 6.25 Mg Tab PO 6.25 mg BID CURTIS Administration Clopidogrel Bisulfate 75 mg 12/20/20 09:00 12/20/20 11:42 Clopidogrel Bisulfate 75 Mg Tab PO 75 mg DAILY CURTIS Administration Enoxaparin Sodium 40 mg 12/20/20 09:00 12/20/20 11:45 Enoxaparin Sodium 40 Mg/0.4 Ml Syringe SC 40 mg 09 CURTIS Administration Timolol Maleate 1 drop 12/20/20 09:00 12/20/20 11:44 Timolol 0.25% Ophth Soln 5 Ml Bottle EA EYE Not Given DAILY CURTIS Torsemide 10 mg 12/20/20 09:00 12/20/20 11:43 Torsemide 20 Mg Tab PO 10 mg DAILY CURTIS Administration Hospitalist Exam Vitals: Vital Signs (12 hours) Temp Pulse Pulse Pulse Resp BP BP 12/20/20 16:00 98.4 F 74 20 12/20/20 14:50 72 73 131/86 139/76 12/20/20 11:00 98.4 F 88 21 H 12/20/20 07:20 99.3 F 102 H 14 BP Pulse Ox 12/20/20 16:00 128/70 99 12/20/20 14:50 12/20/20 11:00 140/87 99 12/20/20 07:20 128/94 H 98 Weight Admit Weight 194 lb 8 oz Weight 194 lb 8 oz General Appearance: NAD, awake alert Eye: PERRL, anicteric sclera Heart: RRR, no murmur, no gallops, no rubs, normal peripheral pulses Respiratory: CTAB, no wheezes, no rales, no ronchi, normal chest expansion Gastrointestinal: soft, non-distended, normal bowel sounds Extremities: no cyanosis, no edema Hosp A/P (1) Acute delirium Code(s): R41.0 - DISORIENTATION, UNSPECIFIED Status: Acute (2) HTN (hypertension) Code(s): I10 - ESSENTIAL (PRIMARY) HYPERTENSION Status: Chronic (3) Coronary artery disease Code(s): I25.10 - ATHSCL HEART DISEASE OF [place] CORONARY ARTERY W/O ANG PCTRS Status: Chronic (4) BPH (benign prostatic hyperplasia) Code(s): N40.0 - BENIGN PROSTATIC HYPERPLASIA WITHOUT LOWER URINRY TRACT SYMP Status: Chronic - Plan * Delerium vs. Dementia- ? etiology- discussed his symptoms with the patient's who is at the bedside, as well as Dr. Brooks * Echo and carotid doppler results noted * Await MRI * Will check B12- and Folic acid, as well well RPR * HTN- blood pressure is controlled- continue Carvediolol and Amlodipine * CAD- stable * BPH- continue Flomax
[2020-12-20] MEDS: Latanoprost 0.005% Ophth Soln 2.5 ml Bottle EA EYE SCH (20:50)
[2020-12-20] MEDS: diphenhydrAMINE 50 MG/ML VIAL IVP PRN (20:50)
[2020-12-20] MEDS: Tamsulosin HCl 0.4 MG CAP PO SCH (20:55)
[2020-12-21] MEDS: diphenhydrAMINE 50 MG/ML VIAL IVP PRN ×2 (02:55→23:58)
[2020-12-21] MEDS: Famotidine 20 MG TAB PO SCH (07:32)
[2020-12-21] MEDS: Clopidogrel Bisulfate 75 MG TAB PO SCH (07:32)
[2020-12-21] MEDS: Torsemide 20 MG TAB PO SCH (07:32)
[2020-12-21] MEDS: Enoxaparin Sodium 40 MG/0.4 ML SYRINGE SC SCH (07:33)
[2020-12-21] MEDS: Amlodipine 10 MG TAB PO SCH (07:33)
[2020-12-21] MEDS: Potassium Chloride 10 MEQ TAB PO SCH (07:33)
[2020-12-21] MEDS: Aspirin 81 mg Enteric Coated Tablet PO SCH (07:33)
[2020-12-21] MEDS: Carvedilol 6.25 MG TAB PO SCH ×2 (07:34→21:43)
--- NOTE | 2020-12-21 08:18 | PDOC.HOSPP ---
- Subjective Encounter Date: 12/21/20 Encounter Time: 08:24 Subjective: Mr. Santos was seen this morning in follow altered mental status. He is not oriented to time, person, or place. He was belligerent. He stuttered, and his sentences did not make any sense. He was very somnolent as he would stop speaking and sleep suddenly; this happened a couple times in our conversation. - Objective Vital Signs & Weight: Vital Signs (12 hours) Temp Pulse Resp BP Pulse Ox 12/21/20 03:55 97.7 F 91 20 164/82 H 93 L Weight Admit Weight 88.224 kg Weight 86.183 kg I&O: 12/20/20 12/21/20 12/22/20 06:59 06:59 06:59 Intake Total 240 900 Balance 240 900 Result Diagrams: 12/20/20 04:05 12/20/20 04:05 Hospitalist ROS - Review of Systems Neurological: reports: confusion - Medication Medications: Active Medications Generic Name Dose Route Start Last Admin Trade Name Freq PRN Reason Stop Dose Admin Amlodipine Besylate 10 mg 12/20/20 09:00 12/21/20 07:33 Amlodipine 10 Mg Tab PO 10 mg DAILY CURTIS Administration Aspirin 81 mg 12/20/20 09:00 12/21/20 07:33 Aspirin 81 Mg Enteric Coated Tablet PO 81 mg DAILY CURTIS Administration Bupropion HCl 100 mg 12/20/20 09:00 12/20/20 11:42 Bupropion 100 Mg Sr Tab PO 100 mg DAILY CURTIS Administration Carvedilol 6.25 mg 12/20/20 09:00 12/21/20 07:34 Carvedilol 6.25 Mg Tab PO 6.25 mg BID CURTIS Administration Clopidogrel Bisulfate 75 mg 12/20/20 09:00 12/21/20 07:32 Clopidogrel Bisulfate 75 Mg Tab PO 75 mg DAILY CURTIS Administration Diphenhydramine HCl 12.5 mg 12/19/20 18:39 12/21/20 02:55 Diphenhydramine 50 Mg/Ml Vial IVP 12.5 mg Q4H PRN Administration Agitation Enoxaparin Sodium 40 mg 12/20/20 09:00 12/21/20 07:33 Enoxaparin Sodium 40 Mg/0.4 Ml Syringe SC 40 mg 0900 CURTIS Administration Famotidine 20 mg 12/21/20 09:00 12/21/20 07:32 Famotidine 20 Mg Tab PO 20 mg DAILY CURTIS Administration Latanoprost 1 drop 12/20/20 21:00 12/20/20 20:50 Latanoprost 0.005% Ophth Soln 2.5 Ml Bottle EA EYE 1 drop HS CURTIS Administration Potassium Chloride 10 meq 12/20/20 09:00 12/21/20 07:33 Potassium Chloride 10 Meq Tab PO 10 meq DAILY CURTIS Administration Tamsulosin HCl 0.4 mg 12/20/20 21:00 12/20/20 20:55 Tamsulosin Hcl 0.4 Mg Cap PO 0.4 mg HS CURTIS Administration Timolol Maleate 1 drop 12/20/20 09:00 12/20/20 11:44 Timolol 0.25% Ophth Soln 5 Ml Bottle EA EYE Not Given DAILY CURTIS Torsemide 10 mg 12/20/20 09:00 12/21/20 07:32 Torsemide 20 Mg Tab PO 10 mg DAILY CURTIS Administration Hospitalist Exam Vitals: Vital Signs (12 hours) Temp Pulse Resp BP Pulse Ox 12/21/20 03:55 97.7 F 91 20 164/82 H 93 L Weight Admit Weight 88.224 kg Weight 86.183 kg Psychiatric: not oriented, somnolent. negative: normal behavior Hosp A/P - Plan * Delerium vs. Dementia with aphasia-- etiology unknown; Wait for MRI. * Will check B12- and Folic acid, as well well RPR * HTN- blood pressure is elevated at 164/82- monitor and continue Carvediolol and Amlodipine * Hyperglycemia--start on insulin. * CAD- stable * BPH- continue Flomax
[2020-12-21 09:57] LABS: Syphilis Antibody Nonreactive (Nonreactive); Syphilis Antibody Index 0.14 S/CO (<1.00 Non-Reactive)
[2020-12-21] MEDS: Bupropion 100 MG SR TAB PO SCH (10:34)
--- NOTE | 2020-12-21 11:06 | PDOC.NEUPN ---
- Subjective Encounter Date: 12/21/20 Subjective: Pt previously presented with altered mental status and profuse agitation yesterday. Had multiple agitative episodes including forcefully telling all personnel to leave the room. He was not oriented to time, but seemed to be oriented to person and place. Overall, he seems very confused when answering simple questions, and would often stutter when answering questions. He was given Ativan to calm him. Today he was reported to be very somnolent, going in and out of alertness, and falling asleep during the middle of a conversation. Today he is also reported to not be oriented to person, place or time. He is also stuttering, presents with profuse confusion, and speaks sentences that make no sense. Subjective: non-verbal - Objective Vital Signs & Weight: Vital Signs (12 hours) Temp Pulse Resp BP Pulse Ox 12/21/20 07:30 98.0 F 88 18 159/91 H 95 12/21/20 03:55 97.7 F 91 20 164/82 H 93 L Weight Admit Weight 88.224 kg Weight 86.183 kg I&O: 12/20/20 12/21/20 12/22/20 06:59 06:59 06:59 Intake Total 240 900 Balance 240 900 Result Diagrams: 12/20/20 04:05 12/22/20 13:09 Additional Labs: A head CT was ordered and awaiting results. ROS - Review of Systems ROS unobtainable: due to mental status Constitutional: reports: other - Medication Medications: Active Medications Generic Name Dose Route Start Last Admin Trade Name Romarioq PRN Reason Stop Dose Admin Amlodipine Besylate 10 mg 12/20/20 09:00 12/21/20 07:33 Amlodipine 10 Mg Tab PO 10 mg DAILY CURTIS Administration Aspirin 81 mg 12/20/20 09:00 12/21/20 07:33 Aspirin 81 Mg Enteric Coated Tablet PO 81 mg DAILY CURTIS Administration Bupropion HCl 100 mg 12/20/20 09:00 12/21/20 10:34 Bupropion 100 Mg Sr Tab PO 100 mg DAILY CURTIS Administration Carvedilol 6.25 mg 12/20/20 09:00 12/21/20 07:34 Carvedilol 6.25 Mg Tab PO 6.25 mg BID CURTIS Administration Clopidogrel Bisulfate 75 mg 12/20/20 09:00 12/21/20 07:32 Clopidogrel Bisulfate 75 Mg Tab PO 75 mg DAILY CURTIS Administration Diphenhydramine HCl 12.5 mg 12/19/20 18:39 12/21/20 02:55 Diphenhydramine 50 Mg/Ml Vial IVP 12.5 mg Q4H PRN Administration Agitation Enoxaparin Sodium 40 mg 12/20/20 09:00 12/21/20 07:33 Enoxaparin Sodium 40 Mg/0.4 Ml Syringe SC 40 mg 0900 CURTIS Administration Famotidine 20 mg 12/21/20 09:00 12/21/20 07:32 Famotidine 20 Mg Tab PO 20 mg DAILY CURTIS Administration Latanoprost 1 drop 12/20/20 21:00 12/20/20 20:50 Latanoprost 0.005% Ophth Soln 2.5 Ml Bottle EA EYE 1 drop HS CURTIS Administration Potassium Chloride 10 meq 12/20/20 09:00 12/21/20 07:33 Potassium Chloride 10 Meq Tab PO 10 meq DAILY CURTIS Administration Tamsulosin HCl 0.4 mg 12/20/20 21:00 12/20/20 20:55 Tamsulosin Hcl 0.4 Mg Cap PO 0.4 mg HS CURTIS Administration Timolol Maleate 1 drop 12/20/20 09:00 12/20/20 11:44 Timolol 0.25% Ophth Soln 5 Ml Bottle EA EYE Not Given DAILY CURTIS Torsemide 10 mg 12/20/20 09:00 12/21/20 07:32 Torsemide 20 Mg Tab PO 10 mg DAILY CURTIS Administration - Exam General Appearance: NAD Eye: PERRL ENT: normocephalic atraumatic Respiratory: CTAB Cardiovascular: RRR Gastrointestinal: soft, non-tender Extremities: no cyanosis Skin: normal turgor Neurological: no new deficit Musculoskeletal: normal tone PSYCH: normal affect Results - Labs Result Diagrams: 12/20/20 04:05 12/22/20 13:09 Lab results: WBC 8.5 thou/uL (4.8-10.8) 12/20/20 04:05 Hgb 14.1 g/dL (14.0-18.0) 12/20/20 04:05 Hct 41.3 % (42.0-52.0) L 12/20/20 04:05 MCV 95.5 fL (78.0-98.0) 12/20/20 04:05 Plt Count 235 thou/uL (130-400) 12/20/20 04:05 Neutrophils % 67.5 % (42.0-75.0) 12/20/20 04:05 Sodium 140 mmol/L (136-145) 12/20/20 04:05 Potassium 3.6 mmol/L (3.5-5.1) 12/20/20 04:05 Chloride 105 mmol/L (98-107) 12/20/20 04:05 Carbon Dioxide 25 mmol/L (23-31) 12/20/20 04:05 BUN 18 mg/dL (8.4-25.7) 12/20/20 04:05 Creatinine 1.39 mg/dL (0.7-1.3) H 12/20/20 04:05 Glucose 203 mg/dL (83-110) H 12/20/20 04:05 Calcium 9.2 mg/dL (7.8-10.44) 12/20/20 04:05 Total Bilirubin 1.0 mg/dL (0.2-1.2) 12/20/20 04:05 AST 21 U/L (5-34) 12/20/20 04:05 ALT 19 U/L (8-55) 12/20/20 04:05 Alkaline Phosphatase 112 U/L (40-110) H 12/20/20 04:05 Serum Total Protein 7.3 g/dL (5.8-8.1) 12/20/20 04:05 Albumin 3.8 g/dL (3.4-4.8) 12/20/20 04:05 Urine Ketones Negative mg/dL (Negative) 12/19/20 14:03 Urine Blood 1+ (Negative) A 12/19/20 14:03 Urine Nitrite Negative (Negative) 12/19/20 14:03 Ur Leukocyte Esterase Negative Tatum/uL (Negative) 12/19/20 14:03 Urine RBC 21-50 HPF (0-3) A 12/19/20 14:03 Urine WBC 4-6 HPF (0-3) A 12/19/20 14:03 Ur Squamous Epith Cells None Seen HPF (0-3) 12/19/20 14:03 Urine Bacteria None Seen HPF (None Seen) 12/19/20 14:03 PN A/P (1) Acute delirium Code(s): R41.0 - DISORIENTATION, UNSPECIFIED Status: Acute (2) BPH (benign prostatic hyperplasia) Code(s): N40.0 - BENIGN PROSTATIC HYPERPLASIA WITHOUT LOWER URINRY TRACT SYMP Status: Chronic (3) Coronary artery disease Code(s): I25.10 - ATHSCL HEART DISEASE OF [place] CORONARY ARTERY W/O ANG PCTRS Status: Chronic (4) Chest pain Code(s): R07.9 - CHEST PAIN, UNSPECIFIED Status: Acute (5) HTN (hypertension) Code(s): I10 - ESSENTIAL (PRIMARY) HYPERTENSION Status: Chronic
[2020-12-21] MEDS: Timolol 0.25% Ophth Soln 5 ml Bottle EA EYE SCH (12:01)
--- NOTE | 2020-12-21 12:26 | PQF ---
CLINICAL DOCUMENTATION CLARIFICATION FORM: Dear Dr. SITA FAJARDO Date: 12-21-20 Please exercise your independent, professional judgment in responding to the clarification form. Clinical indicators are provided on the bottom of this form for your review. Please check appropriate box(es): [ ] Acute Renal Failure (ARF) / Acute Kidney Injury ([place]) [ X ] Insignificant Lab Values [ ] Other diagnosis [ ] Unable to determine In addition, please specify: Present on Admission (POA): [ X ] Yes [ ] No [ ] Unable to determine For continuity of documentation, please document condition throughout progress notes and discharge summary. Thank You. To be completed by CDI/Coding staff for physician review: CLINICAL INDICATORS - SIGNS / SYMPTOMS / LABS / RESULTS AND LOCATION IN MR: GFR: 12-19-20: 47 12-20-20: 48 CREATININE: 12-19-20: 1.43 12-20-20: 1.39 BUN: 12-19-20: 21 RISK FACTORS / RESULTS AND LOCATION IN MR: H&P 12-19-20: HOME MEDS: AMLODIPINE, COREG, FLOMAX, RESTORIL, COLCHICINE, ASA, TORSEMIDE TREATMENTS / RESULTS AND LOCATION IN MR: MAR: 12-19-20: NS IVF National Kid[employer] Guidelines for CKD Staging Stage I Kidney damage with normal or increased GFR GFR > 90 Stage II Kidney damage with mildly decreased GFR GFR 60-89 Stage III Kidney damage with moderately decreased GFR GFR 30-59 Stage IV Kidney damage with severely decreased GFR GFR 16-29 Stage V Kidney failure GFR<15 ESRD End Stage Renal Disease On dialysis Acute Renal Failure/Acute Kidney Failure defined as: Increases in SCr by (>) 0.3 mg/dl within 48 hours OR- Increases in SCr by (>) 1.5 times baseline, known or presumed to have occurred within the prior 7 days OR- Urine volume < 0.5 ml/kg/hour for 6 hours (KDIGO supplement 2012 for RIFLE/MARY criteria) CDS Signature: Brigitte Carey Phone #: [phone] Date: 12-21-20 This is a permanent part of the Medical Record [facility]
--- NOTE | 2020-12-21 13:19 | PDOC.NEUPN ---
- Subjective Encounter Date: 12/21/20 Subjective: Mr. Dang is right now very somnolent because of receiving medications to control agitation and disruptive behavior. at bedside. - Objective Vital Signs & Weight: Vital Signs (12 hours) Temp Pulse Resp BP Pulse Ox 12/21/20 11:32 97.6 F 85 17 146/82 H 96 12/21/20 07:30 98.0 F 88 18 159/91 H 95 12/21/20 03:55 97.7 F 91 20 164/82 H 93 L Weight Admit Weight 194 lb 8 oz Weight 190 lb I&O: 12/20/20 12/21/20 12/22/20 06:59 06:59 06:59 Intake Total 240 900 Balance 240 900 Result Diagrams: 12/20/20 04:05 12/20/20 04:05 Radiology Reviewed by me: Yes EKG Reviewed by me: Yes ROS - Review of Systems ROS unobtainable: due to mental status - Medication Medications: Active Medications Generic Name Dose Route Start Last Admin Trade Name Freq PRN Reason Stop Dose Admin Amlodipine Besylate 10 mg 12/20/20 09:00 12/21/20 07:33 Amlodipine 10 Mg Tab PO 10 mg DAILY CURTIS Administration Aspirin 81 mg 12/20/20 09:00 12/21/20 07:33 Aspirin 81 Mg Enteric Coated Tablet PO 81 mg DAILY CURTIS Administration Bupropion HCl 100 mg 12/20/20 09:00 12/21/20 10:34 Bupropion 100 Mg Sr Tab PO 100 mg DAILY CURTIS Administration Carvedilol 6.25 mg 12/20/20 09:00 12/21/20 07:34 Carvedilol 6.25 Mg Tab PO 6.25 mg BID CURTIS Administration Clopidogrel Bisulfate 75 mg 12/20/20 09:00 12/21/20 07:32 Clopidogrel Bisulfate 75 Mg Tab PO 75 mg DAILY CURTIS Administration Diphenhydramine HCl 12.5 mg 12/19/20 18:39 12/21/20 02:55 Diphenhydramine 50 Mg/Ml Vial IVP 12.5 mg Q4H PRN Administration Agitation Enoxaparin Sodium 40 mg 12/20/20 09:00 12/21/20 07:33 Enoxaparin Sodium 40 Mg/0.4 Ml Syringe SC 40 mg 09 CURTIS Administration Famotidine 20 mg 12/21/20 09:00 12/21/20 07:32 Famotidine 20 Mg Tab PO 20 mg DAILY CURTIS Administration Latanoprost 1 drop 12/20/20 21:00 12/20/20 20:50 Latanoprost 0.005% Ophth Soln 2.5 Ml Bottle EA EYE 1 drop HS CURTIS Administration Potassium Chloride 10 meq 12/20/20 09:00 12/21/20 07:33 Potassium Chloride 10 Meq Tab PO 10 meq DAILY CURTIS Administration Tamsulosin HCl 0.4 mg 12/20/20 21:00 12/20/20 20:55 Tamsulosin Hcl 0.4 Mg Cap PO 0.4 mg HS CURTIS Administration Timolol Maleate 1 drop 12/20/20 09:00 12/21/20 12:01 Timolol 0.25% Ophth Soln 5 Ml Bottle EA EYE Not Given DAILY CURTIS Torsemide 10 mg 12/20/20 09:00 12/21/20 07:32 Torsemide 20 Mg Tab PO 10 mg DAILY CURTIS Administration - Exam General Appearance: NAD Eye: PERRL ENT: normocephalic atraumatic Neck: supple Respiratory: CTAB Cardiovascular: RRR Gastrointestinal: soft Extremities: no cyanosis Skin: normal turgor Neurological: no new deficit Musculoskeletal: normal tone, no muscle wasting PSYCH: somnolent Results - Labs Result Diagrams: 12/20/20 04:05 12/20/20 04:05 Lab results: WBC 8.5 thou/uL (4.8-10.8) 12/20/20 04:05 Hgb 14.1 g/dL (14.0-18.0) 12/20/20 04:05 Hct 41.3 % (42.0-52.0) L 12/20/20 04:05 MCV 95.5 fL (78.0-98.0) 12/20/20 04:05 Plt Count 235 thou/uL (130-400) 12/20/20 04:05 Neutrophils % 67.5 % (42.0-75.0) 12/20/20 04:05 Sodium 140 mmol/L (136-145) 12/20/20 04:05 Potassium 3.6 mmol/L (3.5-5.1) 12/20/20 04:05 Chloride 105 mmol/L (98-107) 12/20/20 04:05 Carbon Dioxide 25 mmol/L (23-31) 12/20/20 04:05 BUN 18 mg/dL (8.4-25.7) 12/20/20 04:05 Creatinine 1.39 mg/dL (0.7-1.3) H 12/20/20 04:05 Glucose 203 mg/dL (83-110) H 12/20/20 04:05 Calcium 9.2 mg/dL (7.8-10.44) 12/20/20 04:05 Total Bilirubin 1.0 mg/dL (0.2-1.2) 12/20/20 04:05 AST 21 U/L (5-34) 12/20/20 04:05 ALT 19 U/L (8-55) 12/20/20 04:05 Alkaline Phosphatase 112 U/L (40-110) H 12/20/20 04:05 Serum Total Protein 7.3 g/dL (5.8-8.1) 12/20/20 04:05 Albumin 3.8 g/dL (3.4-4.8) 12/20/20 04:05 Urine Ketones Negative mg/dL (Negative) 12/19/20 14:03 Urine Blood 1+ (Negative) A 12/19/20 14:03 Urine Nitrite Negative (Negative) 12/19/20 14:03 Ur Leukocyte Esterase Negative Tatum/uL (Negative) 12/19/20 14:03 Urine RBC 21-50 HPF (0-3) A 12/19/20 14:03 Urine WBC 4-6 HPF (0-3) A 12/19/20 14:03 Ur Squamous Epith Cells None Seen HPF (0-3) 12/19/20 14:03 Urine Bacteria None Seen HPF (None Seen) 12/19/20 14:03 - Radiology Interpretation CT scan - head Additional Comment: Head CT reviewed which did not reveal any acute intracranial pathology. PN A/P (1) Acute delirium Code(s): R41.0 - DISORIENTATION, UNSPECIFIED Status: Acute (2) BPH (benign prostatic hyperplasia) Code(s): N40.0 - BENIGN PROSTATIC HYPERPLASIA WITHOUT LOWER URINRY TRACT SYMP Status: Chronic (3) Coronary artery disease Code(s): I25.10 - ATHSCL HEART DISEASE OF [place] CORONARY ARTERY W/O ANG PCTRS Status: Chronic (4) Chest pain Code(s): R07.9 - CHEST PAIN, UNSPECIFIED Status: Acute (5) HTN (hypertension) Code(s): I10 - ESSENTIAL (PRIMARY) HYPERTENSION Status: Chronic - Plan Daily Plan: plan discussed w/ family ( at bedside), DVT proph w/SCDs Mr. Dang is a 85-year-old male who presented with acute mental status change with aggressive behavior. Most likely delirium in the setting of underlying dementia. Neurology consulted to rule out acute intracranial process. Head CT reviewed which was negative for acute intracranial pathology. MRI of the brain to rule evaluate for acute intracranial pathology is pending at this time. EEG reviewed which was negative for seizure activity. Neurochecks every 4 hours. 2D echo showed left ventricular ejection fraction 50 to 55%. No thrombus or PFO. Carotid Dopplers did not reveal hemodynamically significant stenosis. Telemetry to rule out arrhythmias. Continue medical management per primary team Further recommendations will depend on the results of the testing. Plan discussed in detail with the patient's
[2020-12-21 17:44] LABS: Hemoglobin A1c 6.4 % (4.0-6.0)
--- NOTE | 2020-12-21 17:48 | PDOC.HOSPP ---
- Subjective Encounter Date: 12/21/20 Encounter Time: 17:46 Subjective: Mr. Santos was seen today in follow-up of altered mental status. He is still confused, but much less combative. - Objective Vital Signs & Weight: Vital Signs (12 hours) Temp Pulse Resp BP Pulse Ox 12/21/20 15:21 98.2 F 87 15 150/79 H 95 12/21/20 11:32 97.6 F 85 17 146/82 H 96 12/21/20 07:30 98.0 F 88 18 159/91 H 95 Weight Admit Weight 194 lb 8 oz Weight 190 lb I&O: 12/20/20 12/21/20 12/22/20 06:59 06:59 06:59 Intake Total 240 900 Balance 240 900 Result Diagrams: 12/20/20 04:05 12/20/20 04:05 Hospitalist ROS - Medication Medications: Active Medications Generic Name Dose Route Start Last Admin Trade Name Freq PRN Reason Stop Dose Admin Amlodipine Besylate 10 mg 12/20/20 09:00 12/21/20 07:33 Amlodipine 10 Mg Tab PO 10 mg DAILY CURTIS Administration Aspirin 81 mg 12/20/20 09:00 12/21/20 07:33 Aspirin 81 Mg Enteric Coated Tablet PO 81 mg DAILY CURTIS Administration Bupropion HCl 100 mg 12/20/20 09:00 12/21/20 10:34 Bupropion 100 Mg Sr Tab PO 100 mg DAILY CURTIS Administration Carvedilol 6.25 mg 12/20/20 09:00 12/21/20 07:34 Carvedilol 6.25 Mg Tab PO 6.25 mg BID CURTIS Administration Clopidogrel Bisulfate 75 mg 12/20/20 09:00 12/21/20 07:32 Clopidogrel Bisulfate 75 Mg Tab PO 75 mg DAILY CURTIS Administration Diphenhydramine HCl 12.5 mg 12/19/20 18:39 12/21/20 02:55 Diphenhydramine 50 Mg/Ml Vial IVP 12.5 mg Q4H PRN Administration Agitation Enoxaparin Sodium 40 mg 12/20/20 09:00 12/21/20 07:33 Enoxaparin Sodium 40 Mg/0.4 Ml Syringe SC 40 mg 0900 CURTIS Administration Famotidine 20 mg 12/21/20 09:00 12/21/20 07:32 Famotidine 20 Mg Tab PO 20 mg DAILY CURTIS Administration Latanoprost 1 drop 12/20/20 21:00 12/20/20 20:50 Latanoprost 0.005% Ophth Soln 2.5 Ml Bottle EA EYE 1 drop HS CURTIS Administration Potassium Chloride 10 meq 12/20/20 09:00 12/21/20 07:33 Potassium Chloride 10 Meq Tab PO 10 meq DAILY CURTIS Administration Tamsulosin HCl 0.4 mg 12/20/20 21:00 12/20/20 20:55 Tamsulosin Hcl 0.4 Mg Cap PO 0.4 mg HS CURTIS Administration Timolol Maleate 1 drop 12/20/20 09:00 12/21/20 12:01 Timolol 0.25% Ophth Soln 5 Ml Bottle EA EYE Not Given DAILY CURTIS Torsemide 10 mg 12/20/20 09:00 12/21/20 07:32 Torsemide 20 Mg Tab PO 10 mg DAILY CURTIS Administration Hospitalist Exam Vitals: Vital Signs (12 hours) Temp Pulse Resp BP Pulse Ox 12/21/20 15:21 98.2 F 87 15 150/79 H 95 12/21/20 11:32 97.6 F 85 17 146/82 H 96 12/21/20 07:30 98.0 F 88 18 159/91 H 95 Weight Admit Weight 194 lb 8 oz Weight 190 lb General Appearance: NAD, awake alert Eye: PERRL, anicteric sclera Heart: RRR, no murmur, no gallops, no rubs, normal peripheral pulses Respiratory: CTAB, no wheezes, no rales, no ronchi, normal chest expansion, no tachypnea Gastrointestinal: soft, non-tender, non-distended, normal bowel sounds, no palpable masses, no hepatomegaly Extremities: no cyanosis, no edema Hosp A/P (1) Acute delirium Code(s): R41.0 - DISORIENTATION, UNSPECIFIED Status: Acute (2) HTN (hypertension) Code(s): I10 - ESSENTIAL (PRIMARY) HYPERTENSION Status: Chronic (3) Coronary artery disease Code(s): I25.10 - ATHSCL HEART DISEASE OF [place] CORONARY ARTERY W/O ANG PCTRS Status: Chronic (4) BPH (benign prostatic hyperplasia) Code(s): N40.0 - BENIGN PROSTATIC HYPERPLASIA WITHOUT LOWER URINRY TRACT SYMP Status: Chronic - Plan * Delerium vs. Dementia- ? etiology- awaiting MRI * Elevated blood glucose- his blood glucose yesterday was 201. Unclear if this was a fasting glucose or not. Will check a HGA1c, and repeat the blood glucose in the AM- he likely has new onset diabetes- but this would not explain his symptoms * HTN- blood pressure is overall stable- continue Carvediolol and Amlodipine * CAD- stable * BPH- continue Flomax
[2020-12-21] MEDS: Tamsulosin HCl 0.4 MG CAP PO SCH (21:43)
[2020-12-21] MEDS: Melatonin 3 MG TAB PO PRN (21:43)
[2020-12-21] MEDS: Latanoprost 0.005% Ophth Soln 2.5 ml Bottle EA EYE SCH (21:43)
[2020-12-22] MEDS: Lorazepam 2 MG/ML VIAL SLOW IVP PRN ×3 (02:19→17:47)
--- NOTE | 2020-12-22 08:32 | PDOC.HOSPP ---
- Subjective Encounter Date: 12/22/20 Encounter Time: 08:28 Subjective: Mr. Santos was seen this morning in follow-up of his altered mental status. He was given Atavan at 2am which sedated him. He would not wake up, so I spoke to his nurse, Dontae. He says that he was combative last night for which they had to put him on restraints again. They were unable to do the MRI, and are waiting on his to sign paperwork for it. - Objective Vital Signs & Weight: Vital Signs (12 hours) Temp Pulse Resp BP BP Pulse Ox 12/22/20 06:02 98.7 F 89 14 122/75 92 L 12/21/20 21:43 150/73 H Weight Admit Weight 88.224 kg Weight 79.515 kg I&O: 12/21/20 12/22/20 12/23/20 06:59 06:59 06:59 Intake Total 900 1220 Output Total 250 Balance 900 970 Result Diagrams: 12/20/20 04:05 12/20/20 04:05 Hospitalist ROS - Medication Medications: Active Medications Generic Name Dose Route Start Last Admin Trade Name Freq PRN Reason Stop Dose Admin Amlodipine Besylate 10 mg 12/20/20 09:00 12/21/20 07:33 Amlodipine 10 Mg Tab PO 10 mg DAILY CURTIS Administration Aspirin 81 mg 12/20/20 09:00 12/21/20 07:33 Aspirin 81 Mg Enteric Coated Tablet PO 81 mg DAILY CURTIS Administration Bupropion HCl 100 mg 12/20/20 09:00 12/21/20 10:34 Bupropion 100 Mg Sr Tab PO 100 mg DAILY CURTIS Administration Carvedilol 6.25 mg 12/20/20 09:00 12/21/20 21:43 Carvedilol 6.25 Mg Tab PO 6.25 mg BID CURTIS Administration Clopidogrel Bisulfate 75 mg 12/20/20 09:00 12/21/20 07:32 Clopidogrel Bisulfate 75 Mg Tab PO 75 mg DAILY CURTIS Administration Diphenhydramine HCl 12.5 mg 12/19/20 18:39 12/21/20 23:58 Diphenhydramine 50 Mg/Ml Vial IVP 12.5 mg Q4H PRN Administration Agitation Enoxaparin Sodium 40 mg 12/20/20 09:00 12/21/20 07:33 Enoxaparin Sodium 40 Mg/0.4 Ml Syringe SC 40 mg 0900 CURTIS Administration Famotidine 20 mg 12/21/20 09:00 12/21/20 07:32 Famotidine 20 Mg Tab PO 20 mg DAILY CURTIS Administration Latanoprost 1 drop 12/20/20 21:00 12/21/20 21:43 Latanoprost 0.005% Ophth Soln 2.5 Ml Bottle EA EYE 1 drop HS CURTIS Administration Melatonin 6 mg 12/19/20 21:04 12/21/20 21:43 Melatonin 3 Mg Tab PO 6 mg HS PRN Administration Insomnia Potassium Chloride 10 meq 12/20/20 09:00 12/21/20 07:33 Potassium Chloride 10 Meq Tab PO 10 meq DAILY CURTIS Administration Tamsulosin HCl 0.4 mg 12/20/20 21:00 12/21/20 21:43 Tamsulosin Hcl 0.4 Mg Cap PO 0.4 mg HS CURTIS Administration Timolol Maleate 1 drop 12/20/20 09:00 12/21/20 12:01 Timolol 0.25% Ophth Soln 5 Ml Bottle EA EYE Not Given DAILY CURTIS Torsemide 10 mg 12/20/20 09:00 12/21/20 07:32 Torsemide 20 Mg Tab PO 10 mg DAILY CURTIS Administration Hospitalist Exam Vitals: Vital Signs (12 hours) Temp Pulse Resp BP BP Pulse Ox 12/22/20 06:02 98.7 F 89 14 122/75 92 L 12/21/20 21:43 150/73 H Weight Admit Weight 88.224 kg Weight 79.515 kg Hosp A/P - Plan * Delerium vs. Dementia with aphasia-- etiology unknown; Wait for MRI. * HTN- blood pressure is trending down- monitor and continue Carvediolol and Amlodipine * Hyperglycemia--HBA1C was at 6.4. No history of DM. * CAD- stable * BPH- continue Flomax
[2020-12-22] MEDS: Amlodipine 10 MG TAB PO SCH (09:18)
[2020-12-22] MEDS: Torsemide 20 MG TAB PO SCH (09:18)
[2020-12-22] MEDS: Potassium Chloride 10 MEQ TAB PO SCH (09:19)
[2020-12-22] MEDS: Aspirin 81 mg Enteric Coated Tablet PO SCH (09:19)
[2020-12-22] MEDS: Carvedilol 6.25 MG TAB PO SCH ×2 (09:19→21:04)
[2020-12-22] MEDS: Famotidine 20 MG TAB PO SCH (09:19)
[2020-12-22] MEDS: Clopidogrel Bisulfate 75 MG TAB PO SCH (09:19)
[2020-12-22] MEDS: Enoxaparin Sodium 40 MG/0.4 ML SYRINGE SC SCH (09:20)
[2020-12-22] MEDS: Bupropion 100 MG SR TAB PO SCH (09:32)
[2020-12-22] MEDS: Timolol 0.25% Ophth Soln 5 ml Bottle EA EYE SCH (10:04)
--- NOTE | 2020-12-22 12:11 | MRI ---
MRI OF BRAIN WITHOUT CONTRAST: HISTORY: Altered mental status. FINDINGS: Correlation is made with the CT scan of 12/19/2020. FINDINGS: No restricted diffusion is seen. No evidence of acute infarct, hemorrhage, midline shift, or abnorma l extraaxial fluid collection is noted. There are changes of cortical atrophy and chronic small-vessel ischemic disease. The ventricular siz e is appropriate and the basilar cisterns patent. The visualized paranasal sinuses are well aerated. There is a tiny amount of fluid in the right mastoid air cells. IMPRESSION: Chronic changes. No evidence of acute intracranial process. POS: OFF
--- NOTE | 2020-12-22 12:52 | PDOC.NEUPN ---
- Subjective Encounter Date: 12/22/20 Subjective: Mr. Dang seems somnolent this morning. at bedside. Per , he was able to talk to her this morning and ate some breakfast so there is interval improvement. - Objective Vital Signs & Weight: Vital Signs (12 hours) Temp Pulse Pulse Pulse Resp BP BP 12/22/20 09:19 135/79 12/22/20 09:18 89 135/79 12/22/20 08:55 88 86 155/84 H 12/22/20 07:34 98 F 85 15 12/22/20 06:02 98.7 F 89 14 BP BP Pulse Ox 12/22/20 09:19 12/22/20 09:18 12/22/20 08:55 139/64 12/22/20 07:34 135/79 95 12/22/20 06:02 122/75 92 L Weight Admit Weight 194 lb 8 oz Weight 175 lb 4.8 oz I&O: 12/21/20 12/22/20 12/23/20 06:59 06:59 06:59 Intake Total 900 1220 270 Output Total 250 Balance 900 970 270 Result Diagrams: 12/20/20 04:05 12/20/20 04:05 Radiology Reviewed by me: Yes EKG Reviewed by me: Yes ROS - Review of Systems ROS unobtainable: due to mental status (Increased somnolence) - Medication Medications: Active Medications Generic Name Dose Route Start Last Admin Trade Name Freq PRN Reason Stop Dose Admin Amlodipine Besylate 10 mg 12/20/20 09:00 12/22/20 09:18 Amlodipine 10 Mg Tab PO 10 mg DAILY CURTIS Administration Aspirin 81 mg 12/20/20 09:00 12/22/20 09:19 Aspirin 81 Mg Enteric Coated Tablet PO 81 mg DAILY CURTIS Administration Bupropion HCl 100 mg 12/20/20 09:00 12/22/20 09:32 Bupropion 100 Mg Sr Tab PO 100 mg DAILY CURTIS Administration Carvedilol 6.25 mg 12/20/20 09:00 12/22/20 09:19 Carvedilol 6.25 Mg Tab PO 6.25 mg BID CURTIS Administration Clopidogrel Bisulfate 75 mg 12/20/20 09:00 12/22/20 09:19 Clopidogrel Bisulfate 75 Mg Tab PO 75 mg DAILY CURTIS Administration Diphenhydramine HCl 12.5 mg 12/19/20 18:39 12/21/20 23:58 Diphenhydramine 50 Mg/Ml Vial IVP 12.5 mg Q4H PRN Administration Agitation Enoxaparin Sodium 40 mg 12/20/20 09:00 12/22/20 09:20 Enoxaparin Sodium 40 Mg/0.4 Ml Syringe SC 40 mg 0900 CURTIS Administration Famotidine 20 mg 12/21/20 09:00 12/22/20 09:19 Famotidine 20 Mg Tab PO 20 mg DAILY CURTIS Administration Latanoprost 1 drop 12/20/20 21:00 12/21/20 21:43 Latanoprost 0.005% Ophth Soln 2.5 Ml Bottle EA EYE 1 drop HS CURTIS Administration Lorazepam 1 mg 12/20/20 10:18 12/22/20 10:04 Lorazepam 2 Mg/Ml Vial SLOW IVP 1 mg Q8H PRN Administration AGITATION Melatonin 6 mg 12/19/20 21:04 12/21/20 21:43 Melatonin 3 Mg Tab PO 6 mg HS PRN Administration Insomnia Potassium Chloride 10 meq 12/20/20 09:00 12/22/20 09:19 Potassium Chloride 10 Meq Tab PO 10 meq DAILY CURTIS Administration Tamsulosin HCl 0.4 mg 12/20/20 21:00 12/21/20 21:43 Tamsulosin Hcl 0.4 Mg Cap PO 0.4 mg HS CURTIS Administration Timolol Maleate 1 drop 12/20/20 09:00 12/22/20 10:04 Timolol 0.25% Ophth Soln 5 Ml Bottle EA EYE 1 drop DAILY CURTIS Administration Torsemide 10 mg 12/20/20 09:00 12/22/20 09:18 Torsemide 20 Mg Tab PO 10 mg DAILY CURTIS Administration - Exam General Appearance: NAD Eye: PERRL ENT: normocephalic atraumatic Neck: supple Respiratory: CTAB Cardiovascular: RRR Gastrointestinal: soft Extremities: no cyanosis Skin: normal turgor Neurological: no focal deficits, no new deficit Musculoskeletal: normal tone, no muscle wasting PSYCH: somnolent Results - Labs Result Diagrams: 12/20/20 04:05 12/20/20 04:05 Lab results: WBC 8.5 thou/uL (4.8-10.8) 12/20/20 04:05 Hgb 14.1 g/dL (14.0-18.0) 12/20/20 04:05 Hct 41.3 % (42.0-52.0) L 12/20/20 04:05 MCV 95.5 fL (78.0-98.0) 12/20/20 04:05 Plt Count 235 thou/uL (130-400) 12/20/20 04:05 Neutrophils % 67.5 % (42.0-75.0) 12/20/20 04:05 Sodium 140 mmol/L (136-145) 12/20/20 04:05 Potassium 3.6 mmol/L (3.5-5.1) 12/20/20 04:05 Chloride 105 mmol/L (98-107) 12/20/20 04:05 Carbon Dioxide 25 mmol/L (23-31) 12/20/20 04:05 BUN 18 mg/dL (8.4-25.7) 12/20/20 04:05 Creatinine 1.39 mg/dL (0.7-1.3) H 12/20/20 04:05 Glucose 203 mg/dL (83-110) H 12/20/20 04:05 Calcium 9.2 mg/dL (7.8-10.44) 12/20/20 04:05 Total Bilirubin 1.0 mg/dL (0.2-1.2) 12/20/20 04:05 AST 21 U/L (5-34) 12/20/20 04:05 ALT 19 U/L (8-55) 12/20/20 04:05 Alkaline Phosphatase 112 U/L (40-110) H 12/20/20 04:05 Serum Total Protein 7.3 g/dL (5.8-8.1) 12/20/20 04:05 Albumin 3.8 g/dL (3.4-4.8) 12/20/20 04:05 Urine Ketones Negative mg/dL (Negative) 12/19/20 14:03 Urine Blood 1+ (Negative) A 12/19/20 14:03 Urine Nitrite Negative (Negative) 12/19/20 14:03 Ur Leukocyte Esterase Negative Tatum/uL (Negative) 12/19/20 14:03 Urine RBC 21-50 HPF (0-3) A 12/19/20 14:03 Urine WBC 4-6 HPF (0-3) A 12/19/20 14:03 Ur Squamous Epith Cells None Seen HPF (0-3) 12/19/20 14:03 Urine Bacteria None Seen HPF (None Seen) 12/19/20 14:03 - Radiology Interpretation MRI - head Additional Comment: MRI of the brain was negative for acute intracranial pathology PN A/P (1) Acute delirium Code(s): R41.0 - DISORIENTATION, UNSPECIFIED Status: Acute (2) BPH (benign prostatic hyperplasia) Code(s): N40.0 - BENIGN PROSTATIC HYPERPLASIA WITHOUT LOWER URINRY TRACT SYMP Status: Chronic (3) Coronary artery disease Code(s): I25.10 - ATHSCL HEART DISEASE OF [place] CORONARY ARTERY W/O ANG PCTRS Status: Chronic (4) HTN (hypertension) Code(s): I10 - ESSENTIAL (PRIMARY) HYPERTENSION Status: Chronic - Plan Daily Plan: plan discussed w/ family ( at bedside), PT/OT, speech therapy, DVT proph w/SCDs Mr. Dang is a 85-year-old male who presented with acute mental status change with aggressive behavior. Most likely delirium in the setting of underlying dementia. Patient is somnolent during the rounds but according to the there is some interval improvement and he ate breakfast and did speak to her. MRI of the brain to rule evaluate for acute intracranial pathology is completed today and reviewed which did not reveal acute intracranial pathology, bleed or stroke or space-occupying lesion. It does show chronic small vessel disease. Head CT reviewed which was negative for acute intracranial pathology. EEG reviewed which was negative for seizure activity. Neurochecks every 4 hours. 2D echo showed left ventricular ejection fraction 50 to 55%. No thrombus or PFO. Carotid Dopplers did not reveal hemodynamically significant stenosis. Telemetry to rule out arrhythmias. Continue medical management per primary team. Plan discussed in detail with the patient's
[2020-12-22 13:40] LABS: Anion Gap 16 mmol/L (10-20); BUN (Urea Nitrogen) 26 mg/dL (8.4-25.7); Calc. Creatinine Clearance 39 mL/min (70-130); Carbon Dioxide 23 mmol/L (23-31); Chloride 104 mmol/L (98-107); Glucose 177 mg/dL (83-110); Potassium 3.7 mmol/L (3.5-5.1); Sodium 139 mmol/L (136-145)
--- NOTE | 2020-12-22 17:36 | PDOC.HOSPP ---
- Subjective Encounter Date: 12/22/20 Encounter Time: 17:34 Subjective: Ms. Santos was seen today in follow-up of altered mental status. He continues to have periods where he is combative, and volatile. - Objective Vital Signs & Weight: Vital Signs (12 hours) Temp Pulse Pulse Pulse Resp BP BP 12/22/20 16:10 12/22/20 12:28 99.6 F 71 16 12/22/20 09:19 135/79 12/22/20 09:18 89 135/79 12/22/20 08:55 88 86 155/84 H 12/22/20 07:34 98 F 85 15 12/22/20 06:02 98.7 F 89 14 BP BP Pulse Ox 12/22/20 16:10 126/81 12/22/20 12:28 129/72 95 12/22/20 09:19 12/22/20 09:18 12/22/20 08:55 139/64 12/22/20 07:34 135/79 95 12/22/20 06:02 122/75 92 L Weight Admit Weight 194 lb 8 oz Weight 175 lb 4.8 oz I&O: 12/21/20 12/22/20 12/23/20 06:59 06:59 06:59 Intake Total 900 1220 510 Output Total 250 Balance 900 970 510 Result Diagrams: 12/20/20 04:05 12/22/20 13:09 Hospitalist ROS - Medication Medications: Active Medications Generic Name Dose Route Start Last Admin Trade Name Freq PRN Reason Stop Dose Admin Amlodipine Besylate 10 mg 12/20/20 09:00 12/22/20 09:18 Amlodipine 10 Mg Tab PO 10 mg DAILY CURTIS Administration Aspirin 81 mg 12/20/20 09:00 12/22/20 09:19 Aspirin 81 Mg Enteric Coated Tablet PO 81 mg DAILY CURTIS Administration Bupropion HCl 100 mg 12/20/20 09:00 12/22/20 09:32 Bupropion 100 Mg Sr Tab PO 100 mg DAILY CURTIS Administration Carvedilol 6.25 mg 12/20/20 09:00 12/22/20 09:19 Carvedilol 6.25 Mg Tab PO 6.25 mg BID CURTIS Administration Clopidogrel Bisulfate 75 mg 12/20/20 09:00 12/22/20 09:19 Clopidogrel Bisulfate 75 Mg Tab PO 75 mg DAILY CURTIS Administration Diphenhydramine HCl 12.5 mg 12/19/20 18:39 12/21/20 23:58 Diphenhydramine 50 Mg/Ml Vial IVP 12.5 mg Q4H PRN Administration Agitation Enoxaparin Sodium 40 mg 12/20/20 09:00 12/22/20 09:20 Enoxaparin Sodium 40 Mg/0.4 Ml Syringe SC 40 mg 0900 CURTIS Administration Famotidine 20 mg 12/21/20 09:00 12/22/20 09:19 Famotidine 20 Mg Tab PO 20 mg DAILY CURTIS Administration Latanoprost 1 drop 12/20/20 21:00 12/21/20 21:43 Latanoprost 0.005% Ophth Soln 2.5 Ml Bottle EA EYE 1 drop HS CURTIS Administration Lorazepam 1 mg 12/20/20 10:18 12/22/20 10:04 Lorazepam 2 Mg/Ml Vial SLOW IVP 1 mg Q8H PRN Administration AGITATION Melatonin 6 mg 12/19/20 21:04 12/21/20 21:43 Melatonin 3 Mg Tab PO 6 mg HS PRN Administration Insomnia Potassium Chloride 10 meq 12/20/20 09:00 12/22/20 09:19 Potassium Chloride 10 Meq Tab PO 10 meq DAILY CURTIS Administration Tamsulosin HCl 0.4 mg 12/20/20 21:00 12/21/20 21:43 Tamsulosin Hcl 0.4 Mg Cap PO 0.4 mg HS CURTIS Administration Timolol Maleate 1 drop 12/20/20 09:00 12/22/20 10:04 Timolol 0.25% Ophth Soln 5 Ml Bottle EA EYE 1 drop DAILY CURTIS Administration Torsemide 10 mg 12/20/20 09:00 12/22/20 09:18 Torsemide 20 Mg Tab PO 10 mg DAILY CURTIS Administration Hospitalist Exam Vitals: Vital Signs (12 hours) Temp Pulse Pulse Pulse Resp BP BP 12/22/20 16:10 12/22/20 12:28 99.6 F 71 16 12/22/20 09:19 135/79 12/22/20 09:18 89 135/79 12/22/20 08:55 88 86 155/84 H 12/22/20 07:34 98 F 85 15 12/22/20 06:02 98.7 F 89 14 BP BP Pulse Ox 12/22/20 16:10 126/81 12/22/20 12:28 129/72 95 12/22/20 09:19 12/22/20 09:18 12/22/20 08:55 139/64 12/22/20 07:34 135/79 95 12/22/20 06:02 122/75 92 L Weight Admit Weight 194 lb 8 oz Weight 175 lb 4.8 oz Eye: PERRL, anicteric sclera Heart: RRR, no murmur, no gallops, no rubs, normal peripheral pulses Respiratory: CTAB, no wheezes, no rales, no ronchi, normal chest expansion Gastrointestinal: soft, non-tender, non-distended, normal bowel sounds, no palpable masses, no hepatomegaly Extremities: no cyanosis, no edema Hosp A/P (1) Acute delirium Code(s): R41.0 - DISORIENTATION, UNSPECIFIED Status: Acute (2) HTN (hypertension) Code(s): I10 - ESSENTIAL (PRIMARY) HYPERTENSION Status: Chronic (3) Coronary artery disease Code(s): I25.10 - ATHSCL HEART DISEASE OF [place] CORONARY ARTERY W/O ANG PCTRS Status: Chronic (4) BPH (benign prostatic hyperplasia) Code(s): N40.0 - BENIGN PROSTATIC HYPERPLASIA WITHOUT LOWER URINRY TRACT SYMP Status: Chronic - Plan * Delerium on Dementia ( probable)- MRI results were negative for any acute process * Elevated blood glucose-consistent with new onset Diabetes * DM- type 2- will start a low dose Januvia * HTN- blood pressure is overall stable- continue Carvediolol and Amlodipine * CAD- stable * BPH- continue Flomax * Will need to begin discharge planning. He is not safe to return home- will place a case management consult
[2020-12-22] MEDS ORDERED: Sterile Water 10 ML VIAL FS PRN (20:00)
[2020-12-22] MEDS: Ziprasidone 20 MG VIAL IM PRN (21:01)
[2020-12-22] MEDS: Latanoprost 0.005% Ophth Soln 2.5 ml Bottle EA EYE SCH (21:04)
[2020-12-22] MEDS: Tamsulosin HCl 0.4 MG CAP PO SCH (21:05)
--- NOTE | 2020-12-23 08:10 | PDOC.HOSPP ---
- Subjective Encounter Date: 12/23/20 Encounter Time: 08:09 Subjective: Mr. Santos was seen this morning in follow up of altered mental status. He was said to be very combative last night, but he is much calmer this morning. He is still in restraints. He had a bruise on the dorsum of his left hand that was non-blanching, and his finger tips are white. - Objective Vital Signs & Weight: Vital Signs (12 hours) Temp Pulse Resp BP BP Pulse Ox 12/23/20 04:04 99.1 F 84 18 123/72 96 12/22/20 23:05 153/74 H 12/22/20 21:04 135/79 12/22/20 20:50 98.3 F 101 H 20 172/81 H 96 Weight Admit Weight 88.224 kg Weight 79.515 kg I&O: 12/22/20 12/23/20 12/24/20 06:59 06:59 06:59 Intake Total 1220 870 Output Total 250 2 Balance 970 868 Result Diagrams: 12/20/20 04:05 12/22/20 13:09 Hospitalist ROS - Medication Medications: Active Medications Generic Name Dose Route Start Last Admin Trade Name Freq PRN Reason Stop Dose Admin Amlodipine Besylate 10 mg 12/20/20 09:00 12/22/20 09:18 Amlodipine 10 Mg Tab PO 10 mg DAILY CURTIS Administration Aspirin 81 mg 12/20/20 09:00 12/22/20 09:19 Aspirin 81 Mg Enteric Coated Tablet PO 81 mg DAILY CURTIS Administration Bupropion HCl 100 mg 12/20/20 09:00 12/22/20 09:32 Bupropion 100 Mg Sr Tab PO 100 mg DAILY CURTIS Administration Carvedilol 6.25 mg 12/20/20 09:00 12/22/20 21:04 Carvedilol 6.25 Mg Tab PO Not Given BID CURTIS Clopidogrel Bisulfate 75 mg 12/20/20 09:00 12/22/20 09:19 Clopidogrel Bisulfate 75 Mg Tab PO 75 mg DAILY CURTIS Administration Diphenhydramine HCl 12.5 mg 12/19/20 18:39 12/21/20 23:58 Diphenhydramine 50 Mg/Ml Vial IVP 12.5 mg Q4H PRN Administration Agitation Enoxaparin Sodium 40 mg 12/20/20 09:00 12/22/20 09:20 Enoxaparin Sodium 40 Mg/0.4 Ml Syringe SC 40 mg 0900 CURTIS Administration Famotidine 20 mg 12/21/20 09:00 12/22/20 09:19 Famotidine 20 Mg Tab PO 20 mg DAILY CURTIS Administration Latanoprost 1 drop 12/20/20 21:00 12/22/20 21:04 Latanoprost 0.005% Ophth Soln 2.5 Ml Bottle EA EYE 1 drop HS CURTIS Administration Lorazepam 1 mg 12/20/20 10:18 12/22/20 17:47 Lorazepam 2 Mg/Ml Vial SLOW IVP 1 mg Q8H PRN Administration AGITATION Melatonin 6 mg 12/19/20 21:04 12/21/20 21:43 Melatonin 3 Mg Tab PO 6 mg HS PRN Administration Insomnia Potassium Chloride 10 meq 12/20/20 09:00 12/22/20 09:19 Potassium Chloride 10 Meq Tab PO 10 meq DAILY CURTIS Administration Tamsulosin HCl 0.4 mg 12/20/20 21:00 12/22/20 21:05 Tamsulosin Hcl 0.4 Mg Cap PO Not Given HS CURTIS Timolol Maleate 1 drop 12/20/20 09:00 12/22/20 10:04 Timolol 0.25% Ophth Soln 5 Ml Bottle EA EYE 1 drop DAILY CURTIS Administration Torsemide 10 mg 12/20/20 09:00 12/22/20 09:18 Torsemide 20 Mg Tab PO 10 mg DAILY CURTIS Administration Ziprasidone 10 mg 12/22/20 17:33 12/22/20 21:01 Ziprasidone 20 Mg Vial IM 10 mg Q6H PRN Administration Agitation Hospitalist Exam Vitals: Vital Signs (12 hours) Temp Pulse Resp BP BP Pulse Ox 12/23/20 04:04 99.1 F 84 18 123/72 96 12/22/20 23:05 153/74 H 12/22/20 21:04 135/79 12/22/20 20:50 98.3 F 101 H 20 172/81 H 96 Weight Admit Weight 88.224 kg Weight 79.515 kg Extremities: negative: no cyanosis (dorsum of left hand, non-blanching.) Hosp A/P - Plan * Delerium vs. Dementia with aphasia-- etiology unknown; MRI inconclusive--cortical atrophy and chronic small vessel ischemia. * HTN- stable- continue Carvediolol and Amlodipine * Hyperglycemia--HBA1C was at 6.4. No history of DM. * CAD- stable * BPH- continue Flomax
[2020-12-23] MEDS: Torsemide 20 MG TAB PO SCH (09:56)
[2020-12-23] MEDS: Aspirin 81 mg Enteric Coated Tablet PO SCH (09:56)
[2020-12-23] MEDS: Amlodipine 10 MG TAB PO SCH (09:56)
[2020-12-23] MEDS: Alogliptin 6.25 MG TAB PO SCH (09:59)
[2020-12-23] MEDS: Clopidogrel Bisulfate 75 MG TAB PO SCH (09:59)
[2020-12-23] MEDS: Timolol 0.25% Ophth Soln 5 ml Bottle EA EYE SCH (09:59)
[2020-12-23] MEDS: Enoxaparin Sodium 40 MG/0.4 ML SYRINGE SC SCH (09:59)
[2020-12-23] MEDS: Famotidine 20 MG TAB PO SCH (09:59)
[2020-12-23] MEDS: Potassium Chloride 10 MEQ TAB PO SCH (09:59)
[2020-12-23] MEDS: Carvedilol 6.25 MG TAB PO SCH ×2 (09:59→22:25)
[2020-12-23] MEDS: Bupropion 100 MG SR TAB PO SCH (09:59)
--- NOTE | 2020-12-23 14:25 | PDOC.NEUPN ---
- Subjective Encounter Date: 12/23/20 Subjective: Mr. Dang continues to have episodes of aggressive behavior - Objective Vital Signs & Weight: Vital Signs (12 hours) Temp Pulse Resp BP BP Pulse Ox 12/23/20 11:31 99.4 F 90 12 138/70 93 L 12/23/20 09:59 137/84 12/23/20 09:56 84 137/84 96 12/23/20 04:04 99.1 F 84 18 123/72 96 Weight Admit Weight 194 lb 8 oz Weight 175 lb 4.8 oz I&O: 12/22/20 12/23/20 12/24/20 06:59 06:59 06:59 Intake Total 1220 870 120 Output Total 250 2 Balance 970 868 120 Result Diagrams: 12/20/20 04:05 12/22/20 13:09 Radiology Reviewed by me: Yes EKG Reviewed by me: Yes ROS - Review of Systems ROS unobtainable: due to mental status - Medication Medications: Active Medications Generic Name Dose Route Start Last Admin Trade Name Freq PRN Reason Stop Dose Admin Alogliptin Benzoate 6.25 mg 12/23/20 09:00 12/23/20 09:59 Alogliptin 6.25 Mg Tab PO 6.25 mg DAILY CURTIS Administration Amlodipine Besylate 10 mg 12/20/20 09:00 12/23/20 09:56 Amlodipine 10 Mg Tab PO 10 mg DAILY CURTIS Administration Aspirin 81 mg 12/20/20 09:00 12/23/20 09:56 Aspirin 81 Mg Enteric Coated Tablet PO 81 mg DAILY CURTIS Administration Bupropion HCl 100 mg 12/20/20 09:00 12/23/20 09:59 Bupropion 100 Mg Sr Tab PO 100 mg DAILY CURTIS Administration Carvedilol 6.25 mg 12/20/20 09:00 12/23/20 09:59 Carvedilol 6.25 Mg Tab PO 6.25 mg BID CURTIS Administration Clopidogrel Bisulfate 75 mg 12/20/20 09:00 12/23/20 09:59 Clopidogrel Bisulfate 75 Mg Tab PO 75 mg DAILY CURTIS Administration Diphenhydramine HCl 12.5 mg 12/19/20 18:39 12/21/20 23:58 Diphenhydramine 50 Mg/Ml Vial IVP 12.5 mg Q4H PRN Administration Agitation Enoxaparin Sodium 40 mg 12/20/20 09:00 12/23/20 09:59 Enoxaparin Sodium 40 Mg/0.4 Ml Syringe SC 40 mg 0900 CURTIS Administration Famotidine 20 mg 12/21/20 09:00 12/23/20 09:59 Famotidine 20 Mg Tab PO 20 mg DAILY CURTIS Administration Latanoprost 1 drop 12/20/20 21:00 12/22/20 21:04 Latanoprost 0.005% Ophth Soln 2.5 Ml Bottle EA EYE 1 drop HS CURTIS Administration Lorazepam 1 mg 12/20/20 10:18 12/22/20 17:47 Lorazepam 2 Mg/Ml Vial SLOW IVP 1 mg Q8H PRN Administration AGITATION Melatonin 6 mg 12/19/20 21:04 12/21/20 21:43 Melatonin 3 Mg Tab PO 6 mg HS PRN Administration Insomnia Potassium Chloride 10 meq 12/20/20 09:00 12/23/20 09:59 Potassium Chloride 10 Meq Tab PO 10 meq DAILY CURTIS Administration Tamsulosin HCl 0.4 mg 12/20/20 21:00 12/22/20 21:05 Tamsulosin Hcl 0.4 Mg Cap PO Not Given HS CURTIS Timolol Maleate 1 drop 12/20/20 09:00 12/23/20 09:59 Timolol 0.25% Ophth Soln 5 Ml Bottle EA EYE 1 drop DAILY CURTIS Administration Torsemide 10 mg 12/20/20 09:00 12/23/20 09:56 Torsemide 20 Mg Tab PO 10 mg DAILY CURTIS Administration Ziprasidone 10 mg 12/22/20 17:33 12/22/20 21:01 Ziprasidone 20 Mg Vial IM 10 mg Q6H PRN Administration Agitation - Exam General Appearance: NAD Eye: PERRL ENT: normocephalic atraumatic Neck: supple Respiratory: CTAB Cardiovascular: RRR Gastrointestinal: soft Extremities: no cyanosis Skin: normal turgor Neurological: no weakness, no focal deficits, no new deficit Musculoskeletal: normal tone, normal strength, no muscle wasting PSYCH: not oriented Results - Labs Result Diagrams: 12/20/20 04:05 12/22/20 13:09 Lab results: WBC 8.5 thou/uL (4.8-10.8) 12/20/20 04:05 Hgb 14.1 g/dL (14.0-18.0) 12/20/20 04:05 Hct 41.3 % (42.0-52.0) L 12/20/20 04:05 MCV 95.5 fL (78.0-98.0) 12/20/20 04:05 Plt Count 235 thou/uL (130-400) 12/20/20 04:05 Neutrophils % 67.5 % (42.0-75.0) 12/20/20 04:05 Sodium 139 mmol/L (136-145) 12/22/20 13:09 Potassium 3.7 mmol/L (3.5-5.1) 12/22/20 13:09 Chloride 104 mmol/L (98-107) 12/22/20 13:09 Carbon Dioxide 23 mmol/L (23-31) 12/22/20 13:09 BUN 26 mg/dL (8.4-25.7) H 12/22/20 13:09 Creatinine 1.51 mg/dL (0.7-1.3) H 12/22/20 13:09 Glucose 177 mg/dL (83-110) H 12/22/20 13:09 Calcium 9.0 mg/dL (7.8-10.44) 12/22/20 13:09 Total Bilirubin 1.0 mg/dL (0.2-1.2) 12/20/20 04:05 AST 21 U/L (5-34) 12/20/20 04:05 ALT 19 U/L (8-55) 12/20/20 04:05 Alkaline Phosphatase 112 U/L (40-110) H 12/20/20 04:05 Serum Total Protein 7.3 g/dL (5.8-8.1) 12/20/20 04:05 Albumin 3.8 g/dL (3.4-4.8) 12/20/20 04:05 Urine Ketones Negative mg/dL (Negative) 12/19/20 14:03 Urine Blood 1+ (Negative) A 12/19/20 14:03 Urine Nitrite Negative (Negative) 12/19/20 14:03 Ur Leukocyte Esterase Negative Tatum/uL (Negative) 12/19/20 14:03 Urine RBC 21-50 HPF (0-3) A 12/19/20 14:03 Urine WBC 4-6 HPF (0-3) A 12/19/20 14:03 Ur Squamous Epith Cells None Seen HPF (0-3) 12/19/20 14:03 Urine Bacteria None Seen HPF (None Seen) 12/19/20 14:03 - Radiology Interpretation MRI - head Additional Comment: MRI of the brain was negative for acute intracranial pathology PN A/P (1) Acute delirium Code(s): R41.0 - DISORIENTATION, UNSPECIFIED Status: Acute (2) BPH (benign prostatic hyperplasia) Code(s): N40.0 - BENIGN PROSTATIC HYPERPLASIA WITHOUT LOWER URINRY TRACT SYMP Status: Chronic (3) Coronary artery disease Code(s): I25.10 - ATHSCL HEART DISEASE OF [place] CORONARY ARTERY W/O ANG PCTRS Status: Chronic (4) HTN (hypertension) Code(s): I10 - ESSENTIAL (PRIMARY) HYPERTENSION Status: Chronic - Plan Daily Plan: plan discussed w/ family, PT/OT, speech therapy ( at bedside), DVT proph w/SCDs Mr. Dang is a 85-year-old male who presented with acute mental status change with aggressive behavior. Most likely delirium in the setting of underlying dementia. Patient is somnolent during the rounds but according to the but according to the he had several episodes of combative behavior. Continue medical management per primary team for control of behavioral symptoms. MRI of the brain to rule evaluate for acute intracranial pathology is completed today and reviewed which did not reveal acute intracranial pathology, bleed or stroke or space-occupying lesion. It does show chronic small vessel disease. Head CT reviewed which was negative for acute intracranial pathology. EEG reviewed which was negative for seizure activity. Neurochecks every 4 hours. 2D echo showed left ventricular ejection fraction 50 to 55%. No thrombus or PFO. Carotid Dopplers did not reveal hemodynamically significant stenosis. Telemetry to rule out arrhythmias. Case management consult regarding discharge planning. Plan discussed in detail with the patient's and also with the primary attending Dr. Miguel Deng
[2020-12-23] MEDS: Lorazepam 2 MG/ML VIAL SLOW IVP PRN (14:55)
--- NOTE | 2020-12-23 15:38 | PDOC.HOSPP ---
- Subjective Encounter Date: 12/23/20 Encounter Time: 15:36 Subjective: Mr. Santos was seen today in follow-up of Delirium. He has had episodes of combativeness. He is more calm now. - Objective Vital Signs & Weight: Vital Signs (12 hours) Temp Pulse Resp BP BP Pulse Ox 12/23/20 11:31 99.4 F 90 12 138/70 93 L 12/23/20 09:59 137/84 12/23/20 09:56 84 137/84 96 12/23/20 04:04 99.1 F 84 18 123/72 96 Weight Admit Weight 194 lb 8 oz Weight 175 lb 4.8 oz I&O: 12/22/20 12/23/20 12/24/20 06:59 06:59 06:59 Intake Total 1220 870 120 Output Total 250 2 Balance 970 868 120 Result Diagrams: 12/20/20 04:05 12/22/20 13:09 Hospitalist ROS - Medication Medications: Active Medications Generic Name Dose Route Start Last Admin Trade Name Freq PRN Reason Stop Dose Admin Alogliptin Benzoate 6.25 mg 12/23/20 09:00 12/23/20 09:59 Alogliptin 6.25 Mg Tab PO 6.25 mg DAILY CURTIS Administration Amlodipine Besylate 10 mg 12/20/20 09:00 12/23/20 09:56 Amlodipine 10 Mg Tab PO 10 mg DAILY [facility] Administration Aspirin 81 mg 12/20/20 09:00 12/23/20 09:56 Aspirin 81 Mg Enteric Coated Tablet PO 81 mg DAILY CURT[facility] Administration Bupropion HCl 100 mg 12/20/20 09:00 12/23/20 09:59 Bupropion 100 Mg Sr Tab PO 100 mg DAILY CURTIS Administration Carvedilol 6.25 mg 12/20/20 09:00 12/23/20 09:59 Carvedilol 6.25 Mg Tab PO 6.25 mg BID CURTIS Administration Clopidogrel Bisulfate 75 mg 12/20/20 09:00 12/23/20 09:59 Clopidogrel Bisulfate 75 Mg Tab PO 75 mg DAILY CURTIS Administration Diphenhydramine HCl 12.5 mg 12/19/20 18:39 12/21/20 23:58 Diphenhydramine 50 Mg/Ml Vial IVP 12.5 mg Q4H PRN Administration Agitation Enoxaparin Sodium 40 mg 12/20/20 09:00 12/23/20 09:59 Enoxaparin Sodium 40 Mg/0.4 Ml Syringe SC 40 mg 0900 CURTIS Administration Famotidine 20 mg 12/21/20 09:00 12/23/20 09:59 Famotidine 20 Mg Tab PO 20 mg DAILY [facility] Administration Latanoprost 1 drop 12/20/20 21:00 12/22/20 21:04 Latanoprost 0.005% Ophth Soln 2.5 Ml Bottle EA EYE 1 drop HS CURTIS Administration Lorazepam 1 mg 12/20/20 10:18 12/23/20 14:55 Lorazepam 2 Mg/Ml Vial SLOW IVP 1 mg Q8H PRN Administration AGITATION Melatonin 6 mg 12/19/20 21:04 12/21/20 21:43 Melatonin 3 Mg Tab PO 6 mg HS PRN Administration Insomnia Potassium Chloride 10 meq 12/20/20 09:00 12/23/20 09:59 Potassium Chloride 10 Meq Tab PO 10 meq DAILY CURTIS Administration Sodium Chloride 10 ml 12/19/20 18:28 12/23/20 14:55 Flush - Normal Saline 10 Ml Syringe IVF 10 ml PRN PRN Administration Saline Flush Tamsulosin HCl 0.4 mg 12/20/20 21:00 12/22/20 21:05 Tamsulosin Hcl 0.4 Mg Cap PO Not Given HS CURTIS Timolol Maleate 1 drop 12/20/20 09:00 12/23/20 09:59 Timolol 0.25% Ophth Soln 5 Ml Bottle EA EYE 1 drop DAILY CURTIS Administration Torsemide 10 mg 12/20/20 09:00 12/23/20 09:56 Torsemide 20 Mg Tab PO 10 mg DAILY CURTIS Administration Ziprasidone 10 mg 12/22/20 17:33 12/22/20 21:01 Ziprasidone 20 Mg Vial IM 10 mg Q6H PRN Administration Agitation Hospitalist Exam Vitals: Vital Signs (12 hours) Temp Pulse Resp BP BP Pulse Ox 12/23/20 11:31 99.4 F 90 12 138/70 93 L 12/23/20 09:59 137/84 12/23/20 09:56 84 137/84 96 12/23/20 04:04 99.1 F 84 18 123/72 96 Weight Admit Weight 194 lb 8 oz Weight 175 lb 4.8 oz Eye: PERRL, anicteric sclera Neck: supple Heart: RRR, no murmur, no gallops, no rubs, normal peripheral pulses Respiratory: CTAB, no wheezes, no rales, no ronchi, normal chest expansion, no tachypnea, normal percussion Gastrointestinal: soft, non-tender, non-distended, normal bowel sounds Extremities: no cyanosis, no edema Hosp A/P (1) Acute delirium Code(s): R41.0 - DISORIENTATION, UNSPECIFIED Status: Acute (2) HTN (hypertension) Code(s): I10 - ESSENTIAL (PRIMARY) HYPERTENSION Status: Chronic (3) Coronary artery disease Code(s): I25.10 - ATHSCL HEART DISEASE OF [place] CORONARY ARTERY W/O ANG PCTRS Status: Chronic (4) BPH (benign prostatic hyperplasia) Code(s): N40.0 - BENIGN PROSTATIC HYPERPLASIA WITHOUT LOWER URINRY TRACT SYMP Status: Chronic - Plan * Delerium on Dementia ( probable)- MRI results were negative for any acute process * Aggressive Behavior- will add scheduled Geodon * DM- type 2- will start a low dose Januvia and add SSI * HTN- blood pressure is overall stable- continue Carvediolol and Amlodipine * CAD- stable * BPH- continue Flomax * Discharge planning
[2020-12-23] MEDS ORDERED: Dextrose 5% in Water 1,000 ML IV PRN (15:39)
[2020-12-23] MEDS ORDERED: HumaLOG 300 UNITS/3 ML VIAL SC PRN (15:39)
[2020-12-23] MEDS ORDERED: Dextrose 50% Abboject 50 ML SYRINGE SLOW IVP PRN (15:39)
[2020-12-23] MEDS: Latanoprost 0.005% Ophth Soln 2.5 ml Bottle EA EYE SCH (22:25)
[2020-12-23] MEDS: Tamsulosin HCl 0.4 MG CAP PO SCH (22:25)
[2020-12-23] MEDS: Melatonin 3 MG TAB PO PRN (22:26)
[2020-12-24] MEDS: Ziprasidone 20 MG CAP PO SCH (08:31)
[2020-12-24] MEDS: Alogliptin 6.25 MG TAB PO SCH (08:32)
[2020-12-24] MEDS: Amlodipine 10 MG TAB PO SCH (08:32)
[2020-12-24] MEDS: Aspirin 81 mg Enteric Coated Tablet PO SCH (08:33)
[2020-12-24] MEDS: Carvedilol 6.25 MG TAB PO SCH ×2 (08:33→21:20)
[2020-12-24] MEDS: Clopidogrel Bisulfate 75 MG TAB PO SCH (08:34)
[2020-12-24] MEDS: Potassium Chloride 10 MEQ TAB PO SCH (08:34)
[2020-12-24] MEDS: Famotidine 20 MG TAB PO SCH (08:34)
[2020-12-24] MEDS: Torsemide 20 MG TAB PO SCH (08:34)
[2020-12-24] MEDS: Timolol 0.25% Ophth Soln 5 ml Bottle EA EYE SCH (08:38)
[2020-12-24] MEDS: Bupropion 100 MG SR TAB PO SCH (08:43)
[2020-12-24] MEDS: Enoxaparin Sodium 40 MG/0.4 ML SYRINGE SC SCH (08:44)
--- NOTE | 2020-12-24 12:58 | PDOC.HOSPP ---
- Subjective Encounter Date: 12/24/20 Encounter Time: 12:55 Subjective: Mr. Santos was seen today in follow-up of metabolic encephalopathy. He is a bit calmer today than yesterday. No new complaints. - Objective Vital Signs & Weight: Vital Signs (12 hours) Temp Pulse Resp BP BP Pulse Ox 12/24/20 12:01 98.0 F 78 18 130/60 94 L 12/24/20 08:33 142/73 H 12/24/20 08:32 79 142/73 H 12/24/20 08:23 97.9 F 79 17 142/73 H 95 12/24/20 08:00 95 12/24/20 04:00 97.5 F L 78 18 130/63 93 L Weight Admit Weight 194 lb 8 oz Weight 181 lb 6 oz I&O: 12/23/20 12/24/20 12/25/20 06:59 06:59 06:59 Intake Total 870 220 Output Total 2 Balance 868 220 Result Diagrams: 12/20/20 04:05 12/22/20 13:09 Additional Labs: Accuchecks 12/24/20 12/24/20 12/23/20 12:06 07:27 20:45 POC Glucose 142 H 137 H 140 H 12/23/20 16:24 POC Glucose 186 H Hospitalist ROS - Medication Medications: Active Medications Generic Name Dose Route Start Last Admin Trade Name Freq PRN Reason Stop Dose Admin Alogliptin Benzoate 6.25 mg 12/23/20 09:00 12/24/20 08:32 Alogliptin 6.25 Mg Tab PO 6.25 mg DAILY [facility]TIS Administration Amlodipine Besylate 10 mg 12/20/20 09:00 12/24/20 08:32 Amlodipine 10 Mg Tab PO 10 mg DAILY [facility] Administration Aspirin 81 mg 12/20/20 09:00 12/24/20 08:33 Aspirin 81 Mg Enteric Coated Tablet PO 81 mg DAILY [facility] Administration Bupropion HCl 100 mg 12/20/20 09:00 12/24/20 08:43 Bupropion 100 Mg Sr Tab PO 100 mg DAILY [facility] Administration Carvedilol 6.25 mg 12/20/20 09:00 12/24/20 08:33 Carvedilol 6.25 Mg Tab PO 6.25 mg BID CURTIS Administration Clopidogrel Bisulfate 75 mg 12/20/20 09:00 12/24/20 08:34 Clopidogrel Bisulfate 75 Mg Tab PO 75 mg DAILY [facility] Administration Diphenhydramine HCl 12.5 mg 12/19/20 18:39 12/21/20 23:58 Diphenhydramine 50 Mg/Ml Vial IVP 12.5 mg Q4H PRN Administration Agitation Enoxaparin Sodium 40 mg 12/20/20 09:00 12/24/20 08:44 Enoxaparin Sodium 40 Mg/0.4 Ml Syringe SC 40 mg 0900 CURTIS Administration Famotidine 20 mg 12/21/20 09:00 12/24/20 08:34 Famotidine 20 Mg Tab PO 20 mg DAILY CURTIS Administration Latanoprost 1 drop 12/20/20 21:00 12/23/20 22:25 Latanoprost 0.005% Ophth Soln 2.5 Ml Bottle EA EYE 1 drop HS CURTIS Administration Lorazepam 1 mg 12/20/20 10:18 12/23/20 14:55 Lorazepam 2 Mg/Ml Vial SLOW IVP 1 mg Q8H PRN Administration AGITATION Melatonin 6 mg 12/19/20 21:04 12/23/20 22:26 Melatonin 3 Mg Tab PO 6 mg HS PRN Administration Insomnia Potassium Chloride 10 meq 12/20/20 09:00 12/24/20 08:34 Potassium Chloride 10 Meq Tab PO 10 meq DAILY [facility]TIS Administration Sodium Chloride 10 ml 12/19/20 18:28 12/24/20 08:40 Flush - Normal Saline 10 Ml Syringe IVF 10 ml PRN PRN Administration Saline Flush Tamsulosin HCl 0.4 mg 12/20/20 21:00 12/23/20 22:25 Tamsulosin Hcl 0.4 Mg Cap PO 0.4 mg HS CURTIS Administration Timolol Maleate 1 drop 12/20/20 09:00 12/24/20 08:38 Timolol 0.25% Ophth Soln 5 Ml Bottle EA EYE 1 drop DAILY CURTIS Administration Torsemide 10 mg 12/20/20 09:00 12/24/20 08:34 Torsemide 20 Mg Tab PO 10 mg DAILY CURTIS Administration Ziprasidone 10 mg 12/22/20 17:33 12/22/20 21:01 Ziprasidone 20 Mg Vial IM 10 mg Q6H PRN Administration Agitation Ziprasidone 20 mg 12/24/20 08:00 12/24/20 08:31 Ziprasidone 20 Mg Cap PO 20 mg [facility] Administration Hospitalist Exam Vitals: Vital Signs (12 hours) Temp Pulse Resp BP BP Pulse Ox 12/24/20 12:01 98.0 F 78 18 130/60 94 L 12/24/20 08:33 142/73 H 12/24/20 08:32 79 142/73 H 12/24/20 08:23 97.9 F 79 17 142/73 H 95 12/24/20 08:00 95 12/24/20 04:00 97.5 F L 78 18 130/63 93 L Weight Admit Weight 194 lb 8 oz Weight 181 lb 6 oz General Appearance: NAD, awake alert Eye: PERRL Heart: RRR, no murmur, no gallops, no rubs, normal peripheral pulses Respiratory: CTAB Gastrointestinal: soft, non-tender, non-distended, normal bowel sounds, no palpable masses Extremities: 1+ LE edema Hosp A/P (1) Acute delirium Code(s): R41.0 - DISORIENTATION, UNSPECIFIED Status: Acute (2) HTN (hypertension) Code(s): I10 - ESSENTIAL (PRIMARY) HYPERTENSION Status: Chronic (3) Coronary artery disease Code(s): I25.10 - ATHSCL HEART DISEASE OF [place] CORONARY ARTERY W/O ANG PCTRS Status: Chronic (4) BPH (benign prostatic hyperplasia) Code(s): N40.0 - BENIGN PROSTATIC HYPERPLASIA WITHOUT LOWER URINRY TRACT SYMP Status: Chronic - Plan * Delerium on Dementia ( probable)- MRI results were negative for any acute proc ess * Aggressive Behavior- continue scheduled Geodon * DM- type 2- continue Januvia and add SSI * HTN- blood pressure is overall stable- continue Carvediolol and Amlodipine * CAD- stable * BPH- continue Flomax * Discharge planning
[2020-12-24 13:37] VITALS: BMI 25.2
[2020-12-24] MEDS: Tamsulosin HCl 0.4 MG CAP PO SCH (21:20)
[2020-12-24] MEDS: Latanoprost 0.005% Ophth Soln 2.5 ml Bottle EA EYE SCH (21:20)
[2020-12-24] MEDS: Melatonin 3 MG TAB PO PRN (21:20)
[2020-12-25] MEDS: Ziprasidone 20 MG VIAL IM PRN (05:11)
[2020-12-25] MEDS: Bupropion 100 MG SR TAB PO SCH (09:18)
[2020-12-25] MEDS: Carvedilol 6.25 MG TAB PO SCH ×2 (09:18→22:01)
[2020-12-25] MEDS: Ziprasidone 20 MG CAP PO SCH (09:18)
[2020-12-25] MEDS: Famotidine 20 MG TAB PO SCH (09:19)
[2020-12-25] MEDS: Alogliptin 6.25 MG TAB PO SCH (09:19)
[2020-12-25] MEDS: Potassium Chloride 10 MEQ TAB PO SCH (09:19)
[2020-12-25] MEDS: Clopidogrel Bisulfate 75 MG TAB PO SCH (09:19)
[2020-12-25] MEDS: Torsemide 20 MG TAB PO SCH (09:19)
[2020-12-25] MEDS: Amlodipine 10 MG TAB PO SCH (09:20)
[2020-12-25] MEDS: Timolol 0.25% Ophth Soln 5 ml Bottle EA EYE SCH (09:21)
[2020-12-25] MEDS: Aspirin 81 mg Enteric Coated Tablet PO SCH (09:21)
[2020-12-25] MEDS: Enoxaparin Sodium 40 MG/0.4 ML SYRINGE SC SCH (09:21)
--- NOTE | 2020-12-25 16:13 | ULT ---
ULTRASOUND DOPPLER DUPLEX VENOUS LEFT LOWER EXTREMITY: DATE: 12/25/2020 HISTORY: 85-year-old male with left lower extremity pain TECHNIQUE: Grayscale, color-flow, and spectral analysis, of major veins of left lower extremity. FINDINGS: There is demonstration of blood flow with normal compressibility, of the left common femoral, profund a femoral, greater saphenous, femoral, popliteal, and posterior tibial, veins. IMPRESSION: Negative. No deep venous thrombosis of left lower extremity.
--- NOTE | 2020-12-25 16:14 | EKG ---
Test Reason : Blood Pressure : / mmHG Vent. Rate : 082 BPM Atrial Rate : 082 BPM P-R Int : 166 ms QRS Dur : 080 ms QT Int : 288 ms P-R-T Axes : 031 -01 084 degrees QTc Int : 336 ms Normal sinus rhythm Nonspecific ST and T wave abnormality Abnormal ECG Confirmed by BARBARA ONTIVEROS DO ([id number]), image editor TUCKER BLOOM ([id number]) on 12/25/2020 4:13:58 PM Referred By: Confirmed By:BARBARA ONTIVEROS DO
[2020-12-25] MEDS: Lorazepam 2 MG/ML VIAL SLOW IVP PRN ×2 (17:09→23:38)
--- NOTE | 2020-12-25 19:37 | PDOC.HOSPP ---
- Subjective Encounter Date: 12/25/20 Encounter Time: 18:50 Subjective: f/u for AMS/Delirium with ? improvement per nursing. Received Ativan today for agitation but did not require restraints. Pt stating he wants to go home. - Objective Vital Signs & Weight: Vital Signs (12 hours) Temp Pulse Resp BP BP Pulse Ox 12/25/20 16:00 99.3 F 78 18 120/67 94 L 12/25/20 12:00 98.5 F 79 16 121/61 93 L 12/25/20 09:20 88 135/64 12/25/20 09:18 135/64 12/25/20 08:00 98.6 F 88 18 135/64 93 L Weight Admit Weight 194 lb 8 oz Weight 183 lb 12.8 oz I&O: 12/24/20 12/25/20 12/26/20 06:59 06:59 06:59 Intake Total 220 1120 480 Output Total 525 Balance 220 595 480 Result Diagrams: 12/20/20 04:05 12/22/20 13:09 Additional Labs: Accuchecks 12/25/20 12/25/20 12/25/20 16:28 10:21 06:06 POC Glucose 178 H 189 H 152 H 12/24/20 20:51 POC Glucose 152 H Laboratory Tests 12/19/20 12/19/20 12/19/20 14:03 14:39 22:05 Creatinine 1.43 H Phosphorus Magnesium Vitamin B12 Folate TSH 3rd Generation U Benzodiazepines Scrn Detected H Syphilis IgG/IgM Ab SARS-CoV-2 RNA (SHAY) Not Detected 12/20/20 12/20/20 12/20/20 04:05 04:05 04:05 Creatinine 1.39 H Phosphorus 2.4 Magnesium 2.0 Vitamin B12 Folate TSH 3rd Generation 1.7075 U Benzodiazepines Scrn Syphilis IgG/IgM Ab SARS-CoV-2 RNA (SHAY) 12/21/20 12/21/20 12/21/20 09:06 09:06 09:06 Creatinine Phosphorus Magnesium Vitamin B12 337 Folate 33.50 H TSH 3rd Generation U Benzodiazepines Scrn Syphilis IgG/IgM Ab Nonreactive SARS-CoV-2 RNA (SHAY) Radiology Reviewed by me: Yes (Doppler LLE - negative) EKG Reviewed by me: Yes (Tele - SR) Hospitalist ROS - Medication Medications: Active Medications Generic Name Dose Route Start Last Admin Trade Name Freq PRN Reason Stop Dose Admin Acetaminophen 650 mg 12/19/20 18:28 12/25/20 13:49 Acetaminophen 325 Mg Tab PO 650 mg Q4H PRN Administration Headache/Fever/Mild Pain (1-3) Alogliptin Benzoate 6.25 mg 12/23/20 09:00 12/25/20 09:19 Alogliptin 6.25 Mg Tab PO 6.25 mg DAILY CURTIS Administration Amlodipine Besylate 10 mg 12/20/20 09:00 12/25/20 09:20 Amlodipine 10 Mg Tab PO 10 mg DAILY CURTIS Administration Aspirin 81 mg 12/20/20 09:00 12/25/20 09:21 Aspirin 81 Mg Enteric Coated Tablet PO 81 mg DAILY CURTIS Administration Bupropion HCl 100 mg 12/20/20 09:00 12/25/20 09:18 Bupropion 100 Mg Sr Tab PO 100 mg DAILY CURTIS Administration Carvedilol 6.25 mg 12/20/20 09:00 12/25/20 09:18 Carvedilol 6.25 Mg Tab PO 6.25 mg BID CURTIS Administration Clopidogrel Bisulfate 75 mg 12/20/20 09:00 12/25/20 09:19 Clopidogrel Bisulfate 75 Mg Tab PO 75 mg DAILY CURTIS Administration Diphenhydramine HCl 12.5 mg 12/19/20 18:39 12/21/20 23:58 Diphenhydramine 50 Mg/Ml Vial IVP 12.5 mg Q4H PRN Administration Agitation Enoxaparin Sodium 40 mg 12/20/20 09:00 12/25/20 09:21 Enoxaparin Sodium 40 Mg/0.4 Ml Syringe SC 40 mg 0900 CURTIS Administration Famotidine 20 mg 12/21/20 09:00 12/25/20 09:19 Famotidine 20 Mg Tab PO 20 mg DAILY CURTIS Administration Latanoprost 1 drop 12/20/20 21:00 12/24/20 21:20 Latanoprost 0.005% Ophth Soln 2.5 Ml Bottle EA EYE 1 drop HS CURTIS Administration Lorazepam 1 mg 12/20/20 10:18 12/25/20 17:09 Lorazepam 2 Mg/Ml Vial SLOW IVP 1 mg Q8H PRN Administration AGITATION Melatonin 6 mg 12/19/20 21:04 12/24/20 21:20 Melatonin 3 Mg Tab PO 6 mg HS PRN Administration Insomnia Potassium Chloride 10 meq 12/20/20 09:00 12/25/20 09:19 Potassium Chloride 10 Meq Tab PO 10 meq DAILY CURTIS Administration Sodium Chloride 10 ml 12/19/20 18:28 12/24/20 08:40 Flush - Normal Saline 10 Ml Syringe IVF 10 ml PRN PRN Administration Saline Flush Tamsulosin HCl 0.4 mg 12/20/20 21:00 12/24/20 21:20 Tamsulosin Hcl 0.4 Mg Cap PO 0.4 mg HS CURTIS Administration Timolol Maleate 1 drop 12/20/20 09:00 12/25/20 09:21 Timolol 0.25% Ophth Soln 5 Ml Bottle EA EYE 1 drop DAILY CURTIS Administration Torsemide 10 mg 12/20/20 09:00 12/25/20 09:19 Torsemide 20 Mg Tab PO 10 mg DAILY CURTIS Administration Ziprasidone 10 mg 12/22/20 17:33 12/25/20 05:11 Ziprasidone 20 Mg Vial IM 10 mg Q6H PRN Administration Agitation Ziprasidone 20 mg 12/24/20 08:00 12/25/20 09:18 Ziprasidone 20 Mg Cap PO 20 mg QAM-[facility]TIS Administration Hospitalist Exam Vitals: Vital Signs (12 hours) Temp Pulse Resp BP BP Pulse Ox 12/25/20 16:00 99.3 F 78 18 120/67 94 L 12/25/20 12:00 98.5 F 79 16 121/61 93 L 12/25/20 09:20 88 135/64 12/25/20 09:18 135/64 12/25/20 08:00 98.6 F 88 18 135/64 93 L Weight Admit Weight 194 lb 8 oz Weight 183 lb 12.8 oz General Appearance: awake alert General - other findings: agitated Eye: PERRL, anicteric sclera ENT: normocephalic atraumatic, no oropharyngeal lesions Neck: supple, symmetric, no JVD, no thyromegaly, no lymphadenopathy Heart: RRR, no gallops, no rubs, normal peripheral pulses, diminshed peripheral pulses Respiratory: CTAB, no wheezes, no rales, no ronchi, normal chest expansion Gastrointestinal: soft, non-tender, non-distended, normal bowel sounds, no palpable masses, no hepatomegaly Extremities: no cyanosis, no clubbing, no edema Skin: normal turgor Neurological: cranial nerve grossly intact, no new deficit Musculoskeletal: normal tone, generalized weakness Psychiatric: oriented to person, oriented to place, flat affect Hosp A/P (1) Acute delirium Code(s): R41.0 - DISORIENTATION, UNSPECIFIED Status: Acute Plan: Exact etiology unclear, potential influence of Benzodiazepines, ? onset of Yandel ntia (2) Acute metabolic encephalopathy Code(s): G93.41 - METABOLIC ENCEPHALOPATHY Status: Acute Plan: Intermittent, see #1 above, ? sleep deprivation (3) CKD (chronic kidney disease), stage III Code(s): N18.30 - CHRONIC KIDNEY DISEASE, STAGE 3 UNSPECIFIED Status: Chronic Plan: Stable, avoid nephrotoxic meds and limit contrast exposure (4) HTN (hypertension) Code(s): I10 - ESSENTIAL (PRIMARY) HYPERTENSION Status: Chronic Qualifiers: Hypertension type: essential hypertension Qualified Code(s): I10 - Essential (primary) hypertension Plan: Resume home BP regimen - Plan PT/OT, social media coordinator, out of bed/ambulate Stable overall Continue sedation PRN agitation/combativeness OOB with PT for functional assessment ? SNF vs swing bed option Ativan/Geodon for agitation
[2020-12-25] MEDS: diphenhydrAMINE 50 MG/ML VIAL IVP PRN (22:00)
[2020-12-25] MEDS: Tamsulosin HCl 0.4 MG CAP PO SCH (22:01)
[2020-12-25] MEDS: Latanoprost 0.005% Ophth Soln 2.5 ml Bottle EA EYE SCH (22:01)
[2020-12-25] MEDS ORDERED: Ziprasidone 20 MG VIAL IM SCH (23:45)
[2020-12-25] MEDS ORDERED: Lorazepam 2 MG/ML VIAL SLOW IVP SCH (23:45)
[2020-12-25 23:54] LABS: #Eosinphils 0.1 thou/uL (0.0-0.7); #Lymphocytes 1.5 thou/uL (1.20-3.40); #Monocytes 1.6 thou/uL (0.11-0.59); %Basophils 0.2 % (0.0-1.0); %Eosinophils 0.4 % (0.0-10.0); %Lymphocytes 8.7 % (21.0-51.0); %Monocytes 9.4 % (0.0-10.0); %Neutrophils 81.3 % (42.0-75.0); Hemoglobin 13.1 g/dL (14.0-18.0); Mean Corpuscular HGB CONC 32.7 g/dL (32.0-36.0); Mean Corpuscular Volume 94.9 fL (78.0-98.0); Mean Platelet Volume 7.7 fL (7.4-10.4); Platelet Count 249 thou/uL (130-400); RBC Distribution Width 11.9 % (11.5-14.5); Red Blood Cell (RBC) Count 4.22 mill/uL (4.70-6.10); White Blood Cell (WBC) Count 17.2 thou/uL (4.8-10.8)
[2020-12-26 00:17] LABS: ALT (SGPT) 36 U/L (8-55); AST (SGOT) 48 U/L (5-34); Albumin 3.4 g/dL (3.4-4.8); Alkaline Phosphatase 87 U/L (40-110); Anion Gap 21 mmol/L (10-20); BUN (Urea Nitrogen) 34 mg/dL (8.4-25.7); Bilirubin, Total 1.4 mg/dL (0.2-1.2); Calc. Creatinine Clearance 38 mL/min (70-130); Carbon Dioxide 21 mmol/L (23-31); Chloride 98 mmol/L (98-107); Glucose 145 mg/dL (83-110); Magnesium 2.2 mg/dL (1.6-2.6); Potassium 4.1 mmol/L (3.5-5.1); Protein, Total 7.4 g/dL (5.8-8.1); Sodium 136 mmol/L (136-145)
[2020-12-26 00:19] LABS: Lactic Acid 4.4 mmol/L (0.5-2.2)
[2020-12-26] MEDS: Sodium Chloride 0.9% 1,000 ML IV SCH ×2 (01:49→18:01)
[2020-12-26 02:32] LABS: Bacteria/HPF None Seen HPF (None Seen); Bilirubin Negative (Negative); Blood, Urine 1+ (Negative); Clarity Clear (Clear); Glucose, Urine (Dipstick) Normal (Negative); Ketone, Urine Trace mg/dL (Negative); Leukocyte Negative Leu/uL (Negative); Nitrite Negative (Negative); Protein, Urine (Dipstick) 30 mg/dL (Neg-Trace); RBC/HPF 0-3 HPF (0-3); Squamous Epithelial None Seen HPF (0-3); Urobilinogen Normal mg/dL (Less than 2); WBC/HPF 0-3 HPF (0-3)
[2020-12-26 02:33] LABS: Urine Culture Reflex No No
[2020-12-26 04:25] LABS: #Lymphocytes 1.6 thou/uL (1.20-3.40); #Monocytes 1.3 thou/uL (0.11-0.59); #Neutrophils 11.1 thou/uL (1.40-6.50); %Basophils 0.1 % (0.0-1.0); %Eosinophils 0.3 % (0.0-10.0); %Lymphocytes 11.4 % (21.0-51.0); %Monocytes 9.4 % (0.0-10.0); %Neutrophils 78.9 % (42.0-75.0); Hemoglobin 12.1 g/dL (14.0-18.0); Mean Corpuscular HGB CONC 32.7 g/dL (32.0-36.0); Mean Corpuscular Volume 94.8 fL (78.0-98.0); Mean Platelet Volume 7.7 fL (7.4-10.4); Platelet Count 220 thou/uL (130-400); RBC Distribution Width 11.9 % (11.5-14.5); Red Blood Cell (RBC) Count 3.91 mill/uL (4.70-6.10); White Blood Cell (WBC) Count 14.1 thou/uL (4.8-10.8)
[2020-12-26 04:42] LABS: Lactic Acid 1.1 mmol/L (0.5-2.2)
[2020-12-26 04:50] LABS: ALT (SGPT) 32 U/L (8-55); AST (SGOT) 37 U/L (5-34); Albumin 3.1 g/dL (3.4-4.8); Alkaline Phosphatase 78 U/L (40-110); Anion Gap 14 mmol/L (10-20); BUN (Urea Nitrogen) 33 mg/dL (8.4-25.7); Bilirubin, Direct 0.5 mg/dL (0.1-0.3); Bilirubin, Total 1.1 mg/dL (0.2-1.2); Calc. Creatinine Clearance 44 mL/min (70-130); Calcium 8.8 mg/dL (7.8-10.44); Carbon Dioxide 26 mmol/L (23-31); Chloride 100 mmol/L (98-107); Globulin 3.6 g/dL (2.4-3.5); Glucose 159 mg/dL (83-110); Potassium 3.5 mmol/L (3.5-5.1); Protein, Total 6.7 g/dL (5.8-8.1); Sodium 136 mmol/L (136-145)
[2020-12-26] MEDS: HumaLOG 300 UNITS/3 ML VIAL SC PRN ×2 (06:27→16:57)
[2020-12-26] MEDS: Potassium Chloride 10 MEQ TAB PO SCH (08:29)
[2020-12-26] MEDS: Torsemide 20 MG TAB PO SCH (08:29)
[2020-12-26] MEDS: Carvedilol 6.25 MG TAB PO SCH ×2 (08:30→20:37)
[2020-12-26] MEDS: Amlodipine 10 MG TAB PO SCH (08:30)
[2020-12-26] MEDS: Clopidogrel Bisulfate 75 MG TAB PO SCH (08:30)
[2020-12-26] MEDS: Alogliptin 6.25 MG TAB PO SCH (08:30)
[2020-12-26] MEDS: Ziprasidone 20 MG CAP PO SCH ×2 (08:30→20:35)
[2020-12-26] MEDS: Aspirin 81 mg Enteric Coated Tablet PO SCH (08:30)
[2020-12-26] MEDS: Famotidine 20 MG TAB PO SCH (08:30)
[2020-12-26] MEDS: Bupropion 100 MG SR TAB PO SCH (08:30)
[2020-12-26] MEDS: Timolol 0.25% Ophth Soln 5 ml Bottle EA EYE SCH (08:32)
[2020-12-26] MEDS: Enoxaparin Sodium 40 MG/0.4 ML SYRINGE SC SCH (08:32)
--- NOTE | 2020-12-26 08:58 | RAD ---
CHEST 1 VIEW: Date: 12/26/2020 INDICATION: Leukocytosis, low grade temperature. COMPARISON: Prior exam dated 12/19/2020. IMPRESSION: There is persistent left pleural parenchymal opacity. Post CABG change is stable. Right lung is clear . No pneumothorax is evident. Chronic osseous changes are stable. POS: BH
--- NOTE | 2020-12-26 09:30 | CT ---
PRELIMINARY REPORT/[facility]/EMERGENCY AFTER HOURS PROCEDURE: EXAM: CT Head Without Intravenous Contrast. CLINICAL HISTORY: RAPID RESPONSE TEAM CALLED PT FELL ON BLOOD THINNERS. PT HAS BEEN BASELINE ALTERED AND VERY COM PLICATED WITH STAFF. TECHNIQUE: Axial computed tomography images of the head/brain without intravenous contrast. COMPARISON: None provided. FINDINGS: BRAIN: No acute intraparenchymal hemorrhage. No mass lesion. No CT evidence for acute territorial infarct. N o midline shift or extra-axial collection. Mild age-appropriate atrophy. VENTRICLES: No hydrocephalus. ORBITS: The orbits are unremarkable. SINUSES AND MASTOIDS: The paranasal sinuses and mastoid air cells are clear. SOFT TISSUES: No significant facial or scalp soft tissue swelling evident. No radiopaque foreign body is seen. BONES: No acute skull fracture. IMPRESSION: No acute intracranial abnormality. There is mild age-appropriate atrophy. ELECTRONICALLY SIGNED BY: Xiao Dominguez DO Dec 26, 2020 12:25:23 AM [employer] This report is intended for review by the ordering physician only, in accordance of law. If you recei ve this report in error, please call [facility] at [phone]. FINAL REPORT EMERGENCY AFTER HOURS CT BRAIN WITHOUT CONTRAST: I agree with the preliminary report provided by [facility]. No acute intracranial abnormality d emonstrated. There is no appreciable change from the comparison dated 12/19/2020. POS: [facility]
--- NOTE | 2020-12-26 11:08 | PDOC.HOSPP ---
- Subjective Encounter Date: 12/26/20 Encounter Time: 11:00 Subjective: f/u for AMS/Encephalopathy with Code Green overnight after apparently falling out of bed. Work up including CT brain negative. Pt placed in 4-point restraints due to combativeness/aggression. - Objective Vital Signs & Weight: Vital Signs (12 hours) Temp Temp Pulse Pulse Resp Resp BP 12/26/20 08:30 71 129/72 12/26/20 07:43 97.9 F 71 18 12/26/20 05:52 98.4 F 12/26/20 03:44 100.5 F H 87 16 12/25/20 23:20 98 F 112 H 24 H 12/25/20 23:10 98 F 112 H BP BP Pulse Ox Pulse Ox 12/26/20 08:30 12/26/20 07:43 129/71 99 12/26/20 05:52 12/26/20 03:44 143/81 H 97 12/25/20 23:20 147/102 H 99 12/25/20 23:10 147/102 H 99 Weight Admit Weight 194 lb 8 oz Weight 185 lb 1.6 oz I&O: 12/25/20 12/26/20 12/27/20 06:59 06:59 06:59 Intake Total 1120 815 Output Total 525 300 Balance 595 515 Result Diagrams: 12/26/20 04:14 12/26/20 04:14 Additional Labs: Accuchecks 12/26/20 12/25/20 12/25/20 06:14 23:26 21:35 POC Glucose 150 H 152 H 177 H 12/25/20 16:28 POC Glucose 178 H Laboratory Tests 12/19/20 12/19/20 12/19/20 14:03 14:39 22:05 Creatinine 1.43 H Hemoglobin A1c Lactic Acid Phosphorus Magnesium Ammonia Vitamin B12 Folate TSH 3rd Generation U Benzodiazepines Scrn Detected H Syphilis IgG/IgM Ab SARS-CoV-2 RNA (SHAY) Not Detected 12/20/20 12/20/20 12/20/20 04:05 04:05 04:05 Creatinine 1.39 H Hemoglobin A1c Lactic Acid Phosphorus 2.4 Magnesium 2.0 Ammonia Vitamin B12 Folate TSH 3rd Generation 1.7075 U Benzodiazepines Scrn Syphilis IgG/IgM Ab SARS-CoV-2 RNA (SHAY) 12/21/20 12/21/20 12/21/20 09:06 09:06 09:06 Creatinine Hemoglobin A1c Lactic Acid Phosphorus Magnesium Ammonia Vitamin B12 337 Folate 33.50 H TSH 3rd Generation U Benzodiazepines Scrn Syphilis IgG/IgM Ab Nonreactive SARS-CoV-2 RNA (SHAY) 12/21/20 12/25/20 12/26/20 17:19 23:42 04:14 Creatinine Hemoglobin A1c 6.4 H Lactic Acid 4.4 H* Phosphorus Magnesium Ammonia 21 Vitamin B12 Folate TSH 3rd Generation U Benzodiazepines Scrn Syphilis IgG/IgM Ab SARS-CoV-2 RNA (SHAY) 12/26/20 04:14 Creatinine Hemoglobin A1c Lactic Acid 1.1 Phosphorus Magnesium Ammonia Vitamin B12 Folate TSH 3rd Generation U Benzodiazepines Scrn Syphilis IgG/IgM Ab SARS-CoV-2 RNA (SHAY) Radiology Reviewed by me: Yes (CT brain - neg; PCXR - chronic changes) EKG Reviewed by me: Yes (Tele - SR) Hospitalist ROS - Medication Medications: Active Medications Generic Name Dose Route Start Last Admin Trade Name Freq PRN Reason Stop Dose Admin Acetaminophen 650 mg 12/19/20 18:28 12/25/20 13:49 Acetaminophen 325 Mg Tab PO 650 mg Q4H PRN Administration Headache/Fever/Mild Pain (1-3) Alogliptin Benzoate 6.25 mg 12/23/20 09:00 12/26/20 08:30 Alogliptin 6.25 Mg Tab PO 6.25 mg DAILY CURTIS Administration Amlodipine Besylate 10 mg 12/20/20 09:00 12/26/20 08:30 Amlodipine 10 Mg Tab PO 10 mg DAILY CURTIS Administration Aspirin 81 mg 12/20/20 09:00 12/26/20 08:30 Aspirin 81 Mg Enteric Coated Tablet PO 81 mg DAILY CURTIS Administration Bupropion HCl 100 mg 12/20/20 09:00 12/26/20 08:30 Bupropion 100 Mg Sr Tab PO 100 mg DAILY CURTIS Administration Carvedilol 6.25 mg 12/20/20 09:00 12/26/20 08:30 Carvedilol 6.25 Mg Tab PO 6.25 mg BID CURTIS Administration Clopidogrel Bisulfate 75 mg 12/20/20 09:00 12/26/20 08:30 Clopidogrel Bisulfate 75 Mg Tab PO 75 mg DAILY CURTIS Administration Diphenhydramine HCl 12.5 mg 12/19/20 18:39 12/25/20 22:00 Diphenhydramine 50 Mg/Ml Vial IVP 12.5 mg Q4H PRN Administration Agitation Enoxaparin Sodium 40 mg 12/20/20 09:00 12/26/20 08:32 Enoxaparin Sodium 40 Mg/0.4 Ml Syringe SC 40 mg 0900 CURTIS Administration Famotidine 20 mg 12/21/20 09:00 12/26/20 08:30 Famotidine 20 Mg Tab PO 20 mg DAILY CURTIS Administration Sodium Chloride 1,000 mls @ 55 mls/hr 12/26/20 00:45 12/26/20 01:49 Normal Saline 0.9% IV 1,000 mls .[id number] CURTIS Administration Insulin Human Lispro 0 units 12/23/20 15:39 12/26/20 06:27 Humalog 300 Units/3 Ml Vial SC 2 unit .MODERATE SLIDING SC PRN Administration Moderate Correctional Scale Latanoprost 1 drop 12/20/20 21:00 12/25/20 22:01 Latanoprost 0.005% Ophth Soln 2.5 Ml Bottle EA EYE 1 drop HS CURTIS Administration Lorazepam 1 mg 12/20/20 10:18 12/25/20 17:09 Lorazepam 2 Mg/Ml Vial SLOW IVP 1 mg Q8H PRN Administration AGITATION Melatonin 6 mg 12/19/20 21:04 12/24/20 21:20 Melatonin 3 Mg Tab PO 6 mg HS PRN Administration Insomnia Potassium Chloride 10 meq 12/20/20 09:00 12/26/20 08:29 Potassium Chloride 10 Meq Tab PO 10 meq DAILY CURTIS Administration Sodium Chloride 10 ml 12/19/20 18:28 12/24/20 08:40 Flush - Normal Saline 10 Ml Syringe IVF 10 ml PRN PRN Administration Saline Flush Tamsulosin HCl 0.4 mg 12/20/20 21:00 12/25/20 22:01 Tamsulosin Hcl 0.4 Mg Cap PO 0.4 mg HS CURTIS Administration Timolol Maleate 1 drop 12/20/20 09:00 12/26/20 08:32 Timolol 0.25% Ophth Soln 5 Ml Bottle EA EYE 1 drop DAILY CURTIS Administration Torsemide 10 mg 12/20/20 09:00 12/26/20 08:29 Torsemide 20 Mg Tab PO 10 mg DAILY CURTIS Administration Ziprasidone 10 mg 12/22/20 17:33 12/25/20 05:11 Ziprasidone 20 Mg Vial IM 10 mg Q6H PRN Administration Agitation Ziprasidone 20 mg 12/24/20 08:00 12/26/20 08:30 Ziprasidone 20 Mg Cap PO 20 mg QAM-WM CURTIS Administration Hospitalist Exam Vitals: Vital Signs (12 hours) Temp Temp Pulse Pulse Resp Resp BP 12/26/20 08:30 71 129/72 12/26/20 07:43 97.9 F 71 18 12/26/20 05:52 98.4 F 12/26/20 03:44 100.5 F H 87 16 12/25/20 23:20 98 F 112 H 24 H 12/25/20 23:10 98 F 112 H BP BP Pulse Ox Pulse Ox 12/26/20 08:30 12/26/20 07:43 129/71 99 12/26/20 05:52 12/26/20 03:44 143/81 H 97 12/25/20 23:20 147/102 H 99 12/25/20 23:10 147/102 H 99 Weight Admit Weight 194 lb 8 oz Weight 185 lb 1.6 oz General - other findings: sleeping, groggy Eye: PERRL, anicteric sclera ENT: normocephalic atraumatic, no oropharyngeal lesions Neck: supple, symmetric, no JVD, no thyromegaly, no lymphadenopathy Heart: RRR, no gallops, no rubs, normal peripheral pulses Heart - other findings: S1, S2 Respiratory: CTAB, no wheezes, no rales, no ronchi, normal chest expansion, no tachypnea Gastrointestinal: soft, non-tender, non-distended, normal bowel sounds, no palpable masses Extremities: no cyanosis, no clubbing, no edema Skin: normal turgor Neurological - other findings: sedate Musculoskeletal: generalized weakness Psychiatric: somnolent, lethargic Hosp A/P (1) Acute delirium Code(s): R41.0 - DISORIENTATION, UNSPECIFIED Status: Acute Plan: Likely combination of dementia/sleep deprivation and metabolic component, limit daytime sedation/reorientation techniques/family support/limit narcotics (2) Acute metabolic encephalopathy Code(s): G93.41 - METABOLIC ENCEPHALOPATHY Status: Acute Plan: See above #1 (3) CKD (chronic kidney disease), stage III Code(s): N18.30 - CHRONIC KIDNEY DISEASE, STAGE 3 UNSPECIFIED Status: Chronic (4) HTN (hypertension) Code(s): I10 - ESSENTIAL (PRIMARY) HYPERTENSION Status: Chronic Qualifiers: Hypertension type: essential hypertension Qualified Code(s): I10 - Essential (primary) hypertension Plan: Continue Amlodipine/Coreg - Plan plan discussed w/ family, social work nurse, DVT proph w/SCDs Stable overall Continue sedation PRN agitation/combativeness Limit daytime sedation/narcotics/psychotropes D/C restraints OOB with PT for functional assessment ? [facility]ivan/[place] for agitation AM lab: BMP, CBC
[2020-12-26] MEDS: Tamsulosin HCl 0.4 MG CAP PO SCH (20:36)
[2020-12-26] MEDS: Latanoprost 0.005% Ophth Soln 2.5 ml Bottle EA EYE SCH (20:37)
[2020-12-26] MEDS: Lorazepam 2 MG/ML VIAL SLOW IVP PRN (21:08)
[2020-12-27] MEDS: Torsemide 20 MG TAB PO SCH (10:20)
[2020-12-27] MEDS: Aspirin 81 mg Enteric Coated Tablet PO SCH (10:20)
[2020-12-27] MEDS: Famotidine 20 MG TAB PO SCH (10:20)
[2020-12-27] MEDS: Amlodipine 10 MG TAB PO SCH (10:21)
[2020-12-27] MEDS: Carvedilol 6.25 MG TAB PO SCH ×2 (10:21→19:52)
[2020-12-27] MEDS: Potassium Chloride 10 MEQ TAB PO SCH (10:21)
[2020-12-27] MEDS: Clopidogrel Bisulfate 75 MG TAB PO SCH (10:21)
[2020-12-27] MEDS: Alogliptin 6.25 MG TAB PO SCH (10:21)
[2020-12-27] MEDS: Enoxaparin Sodium 40 MG/0.4 ML SYRINGE SC SCH (10:23)
[2020-12-27] MEDS: Bupropion 100 MG SR TAB PO SCH (10:26)
[2020-12-27] MEDS: Timolol 0.25% Ophth Soln 5 ml Bottle EA EYE SCH (10:26)
[2020-12-27] MEDS: Sodium Chloride 0.9% 1,000 ML IV SCH (10:42)
[2020-12-27 12:19] LABS: #Eosinphils 0.1 thou/uL (0.0-0.7); #Lymphocytes 1.2 thou/uL (1.20-3.40); #Neutrophils 9.1 thou/uL (1.40-6.50); %Basophils 0.1 % (0.0-1.0); %Lymphocytes 10.5 % (21.0-51.0); %Monocytes 8.9 % (0.0-10.0); %Neutrophils 79.6 % (42.0-75.0); Hemoglobin 12.3 g/dL (14.0-18.0); Mean Corpuscular HGB CONC 32.4 g/dL (32.0-36.0); Mean Corpuscular Hemoglobin 31.3 pg (27.0-31.0); Mean Corpuscular Volume 96.7 fL (78.0-98.0); Mean Platelet Volume 7.7 fL (7.4-10.4); Platelet Count 259 thou/uL (130-400); Red Blood Cell (RBC) Count 3.94 mill/uL (4.70-6.10); White Blood Cell (WBC) Count 11.4 thou/uL (4.8-10.8)
[2020-12-27 12:40] LABS: Anion Gap 13 mmol/L (10-20); BUN (Urea Nitrogen) 23 mg/dL (8.4-25.7); Calc. Creatinine Clearance 56 mL/min (70-130); Calcium 8.4 mg/dL (7.8-10.44); Carbon Dioxide 25 mmol/L (23-31); Chloride 104 mmol/L (98-107); Glucose 204 mg/dL (83-110); Potassium 3.9 mmol/L (3.5-5.1); Sodium 138 mmol/L (136-145)
--- NOTE | 2020-12-27 12:53 | PDOC.HOSPP ---
- Subjective Encounter Date: 12/27/20 Encounter Time: 12:30 Subjective: f/u for AMS/delirium/dementia. Pt placed in restraints overnight. More alert and conversant this am per . - Objective Vital Signs & Weight: Vital Signs (12 hours) Temp Pulse Resp BP Pulse Ox 12/27/20 08:00 98.1 F 88 20 151/70 H 95 12/27/20 04:00 98.3 F 76 18 143/76 H 94 L Weight Admit Weight 194 lb 8 oz Weight 187 lb I&O: 12/26/20 12/27/20 12/28/20 06:59 06:59 06:59 Intake Total 815 1490 Output Total 300 1500 Balance 515 -10 Result Diagrams: 12/27/20 11:51 12/26/20 04:14 Additional Labs: Accuchecks 12/27/20 12/27/20 12/26/20 11:38 04:33 20:34 POC Glucose 202 H 134 H 125 H 12/26/20 16:32 POC Glucose 188 H Laboratory Tests 12/19/20 12/19/20 12/19/20 14:03 14:39 22:05 Creatinine 1.43 H Hemoglobin A1c Lactic Acid Phosphorus Magnesium Ammonia Vitamin B12 Folate TSH 3rd Generation U Benzodiazepines Scrn Detected H Syphilis IgG/IgM Ab SARS-CoV-2 RNA (SHAY) Not Detected 12/20/20 12/20/20 12/20/20 04:05 04:05 04:05 Creatinine 1.39 H Hemoglobin A1c Lactic Acid Phosphorus 2.4 Magnesium 2.0 Ammonia Vitamin B12 Folate TSH 3rd Generation 1.7075 U Benzodiazepines Scrn Syphilis IgG/IgM Ab SARS-CoV-2 RNA (SHAY) 12/21/20 12/21/20 12/21/20 09:06 09:06 09:06 Creatinine Hemoglobin A1c Lactic Acid Phosphorus Magnesium Ammonia Vitamin B12 337 Folate 33.50 H TSH 3rd Generation U Benzodiazepines Scrn Syphilis IgG/IgM Ab Nonreactive SARS-CoV-2 RNA (SHAY) 12/21/20 12/25/20 12/26/20 17:19 23:42 04:14 Creatinine Hemoglobin A1c 6.4 H Lactic Acid 4.4 H* Phosphorus Magnesium Ammonia 21 Vitamin B12 Folate TSH 3rd Generation U Benzodiazepines Scrn Syphilis IgG/IgM Ab SARS-CoV-2 RNA (SHAY) 12/26/20 04:14 Creatinine Hemoglobin A1c Lactic Acid 1.1 Phosphorus Magnesium Ammonia Vitamin B12 Folate TSH 3rd Generation U Benzodiazepines Scrn Syphilis IgG/IgM Ab SARS-CoV-2 RNA (SHAY) Hospitalist ROS - Medication Medications: Active Medications Generic Name Dose Route Start Last Admin Trade Name Freq PRN Reason Stop Dose Admin Acetaminophen 650 mg 12/19/20 18:28 12/25/20 13:49 Acetaminophen 325 Mg Tab PO 650 mg Q4H PRN Administration Headache/Fever/Mild Pain (1-3) Alogliptin Benzoate 6.25 mg 12/23/20 09:00 12/27/20 10:21 Alogliptin 6.25 Mg Tab PO 6.25 mg DAILY CURTIS Administration Amlodipine Besylate 10 mg 12/20/20 09:00 12/27/20 10:21 Amlodipine 10 Mg Tab PO 10 mg DAILY CURTIS Administration Aspirin 81 mg 12/20/20 09:00 12/27/20 10:20 Aspirin 81 Mg Enteric Coated Tablet PO 81 mg DAILY CURTIS Administration Bupropion HCl 100 mg 12/20/20 09:00 12/27/20 10:26 Bupropion 100 Mg Sr Tab PO 100 mg DAILY CURTIS Administration Carvedilol 6.25 mg 12/20/20 09:00 12/27/20 10:21 Carvedilol 6.25 Mg Tab PO 6.25 mg BID CURTIS Administration Clopidogrel Bisulfate 75 mg 12/20/20 09:00 12/27/20 10:21 Clopidogrel Bisulfate 75 Mg Tab PO 75 mg DAILY CURTIS Administration Diphenhydramine HCl 12.5 mg 12/19/20 18:39 12/25/20 22:00 Diphenhydramine 50 Mg/Ml Vial IVP 12.5 mg Q4H PRN Administration Agitation Enoxaparin Sodium 40 mg 12/20/20 09:00 12/27/20 10:23 Enoxaparin Sodium 40 Mg/0.4 Ml Syringe SC 40 mg 0900 CURTIS Administration Famotidine 20 mg 12/21/20 09:00 12/27/20 10:20 Famotidine 20 Mg Tab PO 20 mg DAILY CURTIS Administration Sodium Chloride 1,000 mls @ 55 mls/hr 12/26/20 00:45 12/27/20 10:42 Normal Saline 0.9% IV 1,000 mls .[id number] CURTIS Administration Insulin Human Lispro 0 units 12/23/20 15:39 12/26/20 16:57 Humalog 300 Units/3 Ml Vial SC 2 unit .MODERATE SLIDING SC PRN Administration Moderate Correctional Scale Latanoprost 1 drop 12/20/20 21:00 12/26/20 20:37 Latanoprost 0.005% Ophth Soln 2.5 Ml Bottle EA EYE 1 drop HS CURTIS Administration Lorazepam 1 mg 12/20/20 10:18 12/26/20 21:08 Lorazepam 2 Mg/Ml Vial SLOW IVP 1 mg Q8H PRN Administration AGITATION Melatonin 6 mg 12/19/20 21:04 12/24/20 21:20 Melatonin 3 Mg Tab PO 6 mg HS PRN Administration Insomnia Potassium Chloride 10 meq 12/20/20 09:00 12/27/20 10:21 Potassium Chloride 10 Meq Tab PO 10 meq DAILY CURTIS Administration Sodium Chloride 10 ml 12/19/20 18:28 12/24/20 08:40 Flush - Normal Saline 10 Ml Syringe IVF 10 ml PRN PRN Administration Saline Flush Tamsulosin HCl 0.4 mg 12/20/20 21:00 12/26/20 20:36 Tamsulosin Hcl 0.4 Mg Cap PO 0.4 mg HS CURTIS Administration Timolol Maleate 1 drop 12/20/20 09:00 12/27/20 10:26 Timolol 0.25% Ophth Soln 5 Ml Bottle EA EYE 1 drop DAILY CURTIS Administration Torsemide 10 mg 12/20/20 09:00 12/27/20 10:20 Torsemide 20 Mg Tab PO 10 mg DAILY CURTIS Administration Ziprasidone 10 mg 12/22/20 17:33 12/25/20 05:11 Ziprasidone 20 Mg Vial IM 10 mg Q6H PRN Administration Agitation Ziprasidone 20 mg 12/26/20 21:00 12/26/20 20:35 Ziprasidone 20 Mg Cap PO 20 mg HS CURTIS Administration Hospitalist Exam Vitals: Vital Signs (12 hours) Temp Pulse Resp BP Pulse Ox 12/27/20 08:00 98.1 F 88 20 151/70 H 95 12/27/20 04:00 98.3 F 76 18 143/76 H 94 L Weight Admit Weight 194 lb 8 oz Weight 187 lb General Appearance: NAD, awake alert Eye: PERRL, anicteric sclera ENT: normocephalic atraumatic, no oropharyngeal lesions Neck: supple, symmetric, no JVD, no thyromegaly, no lymphadenopathy Heart: RRR, no gallops, no rubs, normal peripheral pulses Heart - other findings: S1, S2 Respiratory: CTAB, no wheezes, no rales, no ronchi, normal chest expansion Gastrointestinal: soft, non-tender, non-distended, normal bowel sounds, no palpable masses Extremities: no cyanosis, no clubbing, no edema Skin: normal turgor Neurological: cranial nerve grossly intact, no new deficit Musculoskeletal: normal tone, generalized weakness Psychiatric: normal affect, A&O x 3 Hosp A/P (1) Acute delirium Code(s): R41.0 - DISORIENTATION, UNSPECIFIED Status: Acute Plan: Intermittent, improved today, encourage OOB/family interaction/re-orientation techniques (2) Acute metabolic encephalopathy Code(s): G93.41 - METABOLIC ENCEPHALOPATHY Status: Acute (3) CKD (chronic kidney disease), stage III Code(s): N18.30 - CHRONIC KIDNEY DISEASE, STAGE 3 UNSPECIFIED Status: Chronic (4) HTN (hypertension) Code(s): I10 - ESSENTIAL (PRIMARY) HYPERTENSION Status: Chronic Qualifiers: Hypertension type: essential hypertension Qualified Code(s): I10 - Essential (primary) hypertension - Plan plan discussed w/ family, PT/OT, social economist, out of bed/ambulate, DVT proph w/SCDs Stable overall Continue sedation PRN agitation/combativeness Limit daytime sedation/narcotics/psychotropes D/C restraints today OOB with PT for functional assessment ? SNF [facility] swing bed [facility] in [facility] pending Ativan/Geodon for agitation
[2020-12-27] MEDS: HumaLOG 300 UNITS/3 ML VIAL SC PRN (13:56)
[2020-12-27] MEDS: Tamsulosin HCl 0.4 MG CAP PO SCH (19:52)
[2020-12-27] MEDS: Latanoprost 0.005% Ophth Soln 2.5 ml Bottle EA EYE SCH (19:52)
[2020-12-27] MEDS: Ziprasidone 20 MG CAP PO SCH (19:52)
[2020-12-28] MEDS: Lorazepam 2 MG/ML VIAL SLOW IVP PRN (01:55)
[2020-12-28] MEDS: Sodium Chloride 0.9% 1,000 ML IV SCH (06:02)
[2020-12-28] MEDS: Bupropion 100 MG SR TAB PO SCH (09:26)
[2020-12-28] MEDS: Clopidogrel Bisulfate 75 MG TAB PO SCH (09:26)
[2020-12-28] MEDS: Amlodipine 10 MG TAB PO SCH (09:26)
[2020-12-28] MEDS: Enoxaparin Sodium 40 MG/0.4 ML SYRINGE SC SCH (09:26)
[2020-12-28] MEDS: Carvedilol 6.25 MG TAB PO SCH (09:26)
[2020-12-28] MEDS: Potassium Chloride 10 MEQ TAB PO SCH (09:26)
[2020-12-28] MEDS: Alogliptin 6.25 MG TAB PO SCH (09:26)
[2020-12-28] MEDS: Torsemide 20 MG TAB PO SCH (09:26)
[2020-12-28] MEDS: Famotidine 20 MG TAB PO SCH (09:26)
[2020-12-28] MEDS: Aspirin 81 mg Enteric Coated Tablet PO SCH (09:26)
[2020-12-28] MEDS: Timolol 0.25% Ophth Soln 5 ml Bottle EA EYE SCH (09:27)
--- NOTE | 2020-12-28 09:44 | PDOC.HOSPP ---
- Subjective Encounter Date: 12/28/20 Encounter Time: 09:42 Subjective: calm, oriented to person only - Objective Vital Signs & Weight: Vital Signs (12 hours) Temp Pulse Resp BP Pulse Ox 12/28/20 08:00 98.8 F 89 16 136/69 96 Weight Admit Weight 194 lb 8 oz Weight 184 lb 2 oz I&O: 12/27/20 12/28/20 12/29/20 06:59 06:59 06:59 Intake Total 1490 2270 Output Total 1500 1950 Balance -10 320 Result Diagrams: 12/27/20 11:51 12/27/20 11:51 Additional Labs: Accuchecks 12/28/20 12/27/20 12/27/20 06:06 20:26 16:48 POC Glucose 146 H 156 H 95 12/27/20 11:38 POC Glucose 202 H Hospitalist ROS - Medication Medications: Active Medications Generic Name Dose Route Start Last Admin Trade Name Freq PRN Reason Stop Dose Admin Acetaminophen 650 mg 12/19/20 18:28 12/25/20 13:49 Acetaminophen 325 Mg Tab PO 650 mg Q4H PRN Administration Headache/Fever/Mild Pain (1-3) Alogliptin Benzoate 6.25 mg 12/23/20 09:00 12/28/20 09:26 Alogliptin 6.25 Mg Tab PO 6.25 mg DAILY CURTIS Administration Amlodipine Besylate 10 mg 12/20/20 09:00 12/28/20 09:26 Amlodipine 10 Mg Tab PO 10 mg DAILY CURTIS Administration Aspirin 81 mg 12/20/20 09:00 12/28/20 09:26 Aspirin 81 Mg Enteric Coated Tablet PO 81 mg DAILY CURTIS Administration Bupropion HCl 100 mg 12/20/20 09:00 12/28/20 09:26 Bupropion 100 Mg Sr Tab PO 100 mg DAILY CURTIS Administration Carvedilol 6.25 mg 12/20/20 09:00 12/28/20 09:26 Carvedilol 6.25 Mg Tab PO 6.25 mg BID CURTIS Administration Clopidogrel Bisulfate 75 mg 12/20/20 09:00 12/28/20 09:26 Clopidogrel Bisulfate 75 Mg Tab PO 75 mg DAILY CURTIS Administration Diphenhydramine HCl 12.5 mg 12/19/20 18:39 12/25/20 22:00 Diphenhydramine 50 Mg/Ml Vial IVP 12.5 mg Q4H PRN Administration Agitation Enoxaparin Sodium 40 mg 12/20/20 09:00 12/28/20 09:26 Enoxaparin Sodium 40 Mg/0.4 Ml Syringe SC 40 mg 0900 CURTIS Administration Famotidine 20 mg 12/21/20 09:00 12/28/20 09:26 Famotidine 20 Mg Tab PO 20 mg DAILY CURTIS Administration Sodium Chloride 1,000 mls @ 55 mls/hr 12/26/20 00:45 12/28/20 06:02 Normal Saline 0.9% IV 1,000 mls .[id number] CURTIS Administration Insulin Human Lispro 0 units 12/23/20 15:39 12/27/20 13:56 Humalog 300 Units/3 Ml Vial SC 4 unit .MODERATE SLIDING SC PRN Administration Moderate Correctional Scale Latanoprost 1 drop 12/20/20 21:00 12/27/20 19:52 Latanoprost 0.005% Ophth Soln 2.5 Ml Bottle EA EYE 1 drop HS CURTIS Administration Lorazepam 1 mg 12/20/20 10:18 12/28/20 01:55 Lorazepam 2 Mg/Ml Vial SLOW IVP 1 mg Q8H PRN Administration AGITATION Melatonin 6 mg 12/19/20 21:04 12/24/20 21:20 Melatonin 3 Mg Tab PO 6 mg HS PRN Administration Insomnia Potassium Chloride 10 meq 12/20/20 09:00 12/28/20 09:26 Potassium Chloride 10 Meq Tab PO 10 meq DAILY CURTIS Administration Sodium Chloride 10 ml 12/19/20 18:28 12/24/20 08:40 Flush - Normal Saline 10 Ml Syringe IVF 10 ml PRN PRN Administration Saline Flush Tamsulosin HCl 0.4 mg 12/20/20 21:00 12/27/20 19:52 Tamsulosin Hcl 0.4 Mg Cap PO 0.4 mg HS CURTIS Administration Timolol Maleate 1 drop 12/20/20 09:00 12/28/20 09:27 Timolol 0.25% Ophth Soln 5 Ml Bottle EA EYE 1 drop DAILY CURTIS Administration Torsemide 10 mg 12/20/20 09:00 12/28/20 09:26 Torsemide 20 Mg Tab PO 10 mg DAILY CURTIS Administration Ziprasidone 10 mg 12/22/20 17:33 12/25/20 05:11 Ziprasidone 20 Mg Vial IM 10 mg Q6H PRN Administration Agitation Ziprasidone 20 mg 12/26/20 21:00 12/27/20 19:52 Ziprasidone 20 Mg Cap PO 20 mg HS CURTIS Administration Hospitalist Exam Vitals: Vital Signs (12 hours) Temp Pulse Resp BP Pulse Ox 12/28/20 08:00 98.8 F 89 16 136/69 96 Weight Admit Weight 194 lb 8 oz Weight 184 lb 2 oz General Appearance: awake alert Neck: no JVD Heart: RRR, no murmur Respiratory: CTAB Gastrointestinal: soft, non-tender, normal bowel sounds Extremities: no edema Hosp A/P (1) Acute delirium Code(s): R41.0 - DISORIENTATION, UNSPECIFIED Status: Acute (2) BPH (benign prostatic hyperplasia) Code(s): N40.0 - BENIGN PROSTATIC HYPERPLASIA WITHOUT LOWER URINRY TRACT SYMP Status: Chronic Qualifiers: Lower urinary tract symptom detail: unspecified (3) CKD (chronic kidney disease), stage III Code(s): N18.30 - CHRONIC KIDNEY DISEASE, STAGE 3 UNSPECIFIED Status: Chronic (4) Coronary artery disease Code(s): I25.10 - ATHSCL HEART DISEASE OF [place] CORONARY ARTERY W/O ANG PCTRS Status: Chronic Qualifiers: Coronary Disease-Associated Artery/Lesion type: [place] artery [place] vs. transplanted heart: [place] heart Associated angina: without angina Qualified Code(s): I25.10 - Atherosclerotic heart disease of [place] coronary artery without angina pectoris (5) HTN (hypertension) Code(s): I10 - ESSENTIAL (PRIMARY) HYPERTENSION Status: Chronic Qualifiers: Hypertension type: essential hypertension Qualified Code(s): I10 - Essential (primary) hypertension - Plan DVT proph w/heparin avoid benzzodiazepiness placement
[2020-12-28 14:32] LABS: SARS-CoV-2 NAA Rapid Test Not Detected (NotDetected)
--- NOTE | 2020-12-28 16:12 | DIS ---
DATE OF ADMISSION: 12/20/2020 DATE OF DISCHARGE: 12/28/2020 PRIMARY CARE PROVIDER: Listed as Dr. Talon Delatorre. FINAL DIAGNOSES: Acute delirium, chronic kidney disease stage 3, hypertension, chronic use of tobacco, chronic use of benzodiazepines, diabetes mellitus type 2 with chronic kidney disease. DISCHARGE MEDICATIONS: 1. Alogliptin 6.25 mg daily. 2. Melatonin 6 mg at bedtime p.r.n. 3. Geodon 20 mg at bedtime. 4. Amlodipine 10 mg a day. 5. Aspirin 81 mg a day. 6. Wellbutrin 100 mg a day. 7. Coreg 6.25 mg a day. 8. Plavix 75 mg a day. 9. Torsemide 10 mg a day. 10. Timoptic one drop each eye daily. 11. Flomax 0.4 mg a day. 12. Potassium chloride 10 mEq a day. 13. Xalatan one drop each eye at bedtime. 14. Nexium 40 mg a day. ALLERGIES: NO KNOWN DRUG ALLERGIES. CODE STATUS: Full. PENDING AT TIME OF DISCHARGE: Nothing. DIET: Diabetic. HOSPITAL COURSE: Admitted to the hospital through [facility] with altered mental status with 2 of 3 weeks of intermittent agitation, some aggressive behavior, stated he was unable to sleep. It was noted the patient was on multiple benzodiazepines, these were discontinued. Dr. Sujata Brooks of Neurology was consulted. She ordered a neurological workup including a brain MRI, which showed no acute process. Echocardiogram, normal EF of 55% to 60%. Brain CT was also unremarkable. Carotid Doppler, no evidence of significant stenosis. Initial laboratory, CBC was unremarkable. Comprehensive metabolic profile showed a creatinine of 1.43, consistent with chronic kidney disease stage 3. Blood sugars were monitored and maintained between 100 and 200. The only thing present on the tox screen was benzos. The [id number]-[id number]-[id number] test was negative. After the patient had the benzos removed, a Seroquel was introduced. Dr. Brooks also did an EEG, which showed just diffuse dysfunction, no seizure activity. By the time I first saw the patient, he was more alert, conversant, still had some disorientation, but was not aggressive. He has been referred to the [facility] under the care of Dr. Munguia for ongoing care. The Xanax and benzodiazepine related sleeping pill have been discontinued. He has been accepted and is being transferred for continuing care. He did have an episode where he fell out of bed during his hospital stay and had a repeat brain CT, which has no acute change. The patient will be followed as I mentioned before by Dr. Munguia in [place]. It has been suggested he will be seen in 3 days. Job ID: [id number]
[2020-12-28 16:43] VITALS: BP 128/70; TEMP 98.4
== END 2020-12-28 19:55 | DRG 884 ==
LOC: ERS 13:27 → 2NO 17:06 → OBSVTOIN 12-20 13:45 → T4-B 12-26 12:30
PROVIDERS: ADMIT Internal Medicine; ATTEND Internal Medicine
DX: F03.91 Unspecified dementia, unspecified severity, with behavioral disturbance (principal); G93.41 Metabolic encephalopathy; F05 Delirium due to known physiological condition; I13.0 Hypertensive heart and chronic kidney disease with heart failure and stage 1 through stage 4 chronic kidney disease, or unspecified chronic kidney disease; I50.30 Unspecified diastolic (congestive) heart failure; E78.00 Pure hypercholesterolemia, unspecified; N18.30 Chronic kidney disease, stage 3 unspecified; E11.22 Type 2 diabetes mellitus with diabetic chronic kidney disease; N40.0 Benign prostatic hyperplasia without lower urinary tract symptoms; I25.10 Atherosclerotic heart disease of native coronary artery without angina pectoris; Z20.822 Contact with and (suspected) exposure to COVID-19; Z90.49 Acquired absence of other specified parts of digestive tract; Z95.1 Presence of aortocoronary bypass graft; Z95.5 Presence of coronary angioplasty implant and graft; Z79.899 Other long term (current) drug therapy; Z87.891 Personal history of nicotine dependence; Z79.82 Long term (current) use of aspirin; Z78.1 Physical restraint status
CPT/HCPCS: 36415; 36416; 51701; 70450; 70551; 71045; 80048; 80053; 80306; 80307; 81001; 81003; 81015; 82140; 82248; 82607; 82746; 83036; 83605; 83735; 84100; 84443; 85025; 86780; 87635; 93005; 93306; 93880; 95712; 95816; 95819; 95957; 96372; 96374; G0378; J1200; J1650; J1815; J2060; J3486; U0002; U0003; U0005